=== PATIENT | female | born 1960 | race Caucasian/White ===

== ENCOUNTER → 2018-02-18 14:36 | Outpatient (POV) | payer BC, SELFPAY | PROVIDERS: Family Provider Family Medicine; Visit Provider Nurse Practitioner Acute Care | DX: Z00.00 Encounter for general adult medical examination without abnormal findings (principal) ==

== ENCOUNTER → 2018-02-22 08:12 | Outpatient (CLI) | payer BC, SELFPAY ==
--- NOTE | 2018-02-22 08:30 | US_ITS ---
US abdomen limited History:Right-sided abdominal pain, back pain, Ordering Physician:Urmila Wilcox Patient Age: 57 years Comparison:None Findings: Pancreas:Unremarkable. No obvious mass or abnormal fluid collection. No ductal dilatation Liver:No focal liver lesions demonstrated. Homogeneous echogenicity. No intrahepatic biliary ductal dilatation evident Right Kidney:Unremarkable. Normal size and echogenicity. No hydronephrosis Gallbladder:No gallstones, gallbladder wall thickening, pericholecystic fluid, or biliary dilatation. Impression:Negative gallbladder/right upper quadrant ultrasound
== END ==
PROVIDERS: Family Provider Family Medicine; PCP Family Medicine; Visit Provider Nurse Practitioner Acute Care
DX: R10.11 Right upper quadrant pain (principal)
CPT/HCPCS: 76705

== ENCOUNTER → 2018-06-17 09:24 | Outpatient (CLI) | payer BC, SELFPAY ==
--- NOTE | 2018-06-17 09:30 | XR_ITS ---
XR DEXA axial skeleton HISTORY: ITS.REASON: POST MENOPAUSAL ORDERING PHYSICIAN: Dasia Rodriguez MD PATIENT AGE: 58 years COMPARISON: None FINDINGS: The BMD measured at the Right femoral neck is 0.869 g/cm squared with a T score of -1.2. This is considered Osteopenic according to the World Health Organization criteria. Fracture risk is Moderate. Treatment is advised. IMPRESSION: Osteopenia with moderate fracture risk. Suggest treatment and follow-up exam May 2020
--- NOTE | 2018-06-17 09:30 | XR_ITS ---
XR foot LT min 3V HISTORY: ITS.REASON: LEFT FOOT PAIN ORDERING PHYSICIAN: Dasia Rodriguez MD PATIENT AGE: 58 years COMPARISON: None FINDINGS: No fracture or dislocation. No lytic or blastic change. There is normal mineralization.. The joint spaces are well-preserved. No significant degenerative/arthritic changes. No erosive changes evident. IMPRESSION: Negative, no acute finding
== END ==
PROVIDERS: Family Provider Family Medicine; PCP Family Medicine; Visit Provider Family Medicine
DX: Z78.0 Asymptomatic menopausal state (principal); M79.672 Pain in left foot
CPT/HCPCS: 73630; 77080

== ENCOUNTER → 2019-06-17 07:57 | Outpatient (POV) | payer BC, SELFPAY | PROVIDERS: Visit Provider Dermatology | DX: Z00.00 Encounter for general adult medical examination without abnormal findings (principal) ==

== ENCOUNTER → 2019-08-13 13:30 | Outpatient (CLI) | payer BC, SELFPAY ==
--- NOTE | 2019-08-13 13:40 | CT_ITS ---
PROCEDURE: CT SINUS WO CON CLINICAL HISTORY: RECURRENT SINUSITIS Sinus drainage, chronic sinusitis COMPARISON: SINUS CT SINUS (MAX-FACIAL W/O CONT) from 08/02/2015 TECHNIQUE: Axial images obtained with sagittal and coronal reformats. All CT scans at the facility use one or more dose reduction, viz: automated exposure control, ma/kV adjustment per patient size (including targeted exams where dose is matched to indication, i.e. head), or iterative reconstruction technique. FINDINGS: No sinus air-fluid level or mastoid effusion apparent. No significant nasal septal deviation. No significant mucosal thickening. The roots of the maxillary teeth do not extend into the sinus cavity. TMJs have an unremarkable appearance. The orbits are unremarkable. The artifact is present from patient's dental work. Scattered calcifications are present within the crypts of the tonsils. IMPRESSION: Negative CT paranasal sinuses. Dictated by: Corey Valdes MD 08/13/2019 17:06 Electronically signed by Corey Valdes MD in [place] 08/13/2019 17:07
== END ==
PROVIDERS: PCP Family Medicine; Visit Provider Physician Assistant
DX: J01.01 Acute recurrent maxillary sinusitis (principal)
CPT/HCPCS: 70486

== ENCOUNTER → 2019-08-22 15:39 | Outpatient (CLI) | payer BC, SELFPAY ==
--- NOTE | 2019-08-22 15:42 | XR_ITS ---
PROCEDURE: XR CHEST 2V CLINICAL HISTORY: BRONCHITIS COMPARISON: [facility] CT CHEST W/O CONTRAST from 05/28/2015 CXR CHEST(2 VIEWS-NOT PORTABLE) from 11/03/2015 CXR1 CHEST-PORTABLE from 11/28/2015 CXR CHEST(2 VIEWS-NOT PORTABLE) from 01/26/2017 FINDINGS: The cardiomediastinal silhouette and pulmonary vascularity are within normal limits. The lungs are clear without infiltrates, suspicious nodules, or pleural effusions. No acute bony abnormalities. IMPRESSION: No acute findings. Dictated by: Jeronimo Seals 08/22/2019 15:59 Electronically signed by Jeronimo Seals in [place] 08/22/2019 15:59
== END ==
PROVIDERS: PCP Physician Assistant; Visit Provider Physician Assistant
DX: J45.909 Unspecified asthma, uncomplicated (principal)
CPT/HCPCS: 71046

== ENCOUNTER → 2019-09-18 10:16 | Outpatient (CLI) | payer BC, SELFPAY ==
--- NOTE | 2019-09-18 10:21 | XR_ITS ---
PROCEDURE: XR CHEST 2V CLINICAL HISTORY: BRONCHITIS COMPARISON: WO CT CHEST W/O CONTRAST from 05/28/2015 CXR1 CHEST-PORTABLE from 11/28/2015 CXR CHEST(2 VIEWS-NOT PORTABLE) from 01/26/2017 XR CHEST 2V from 08/22/2019 FINDINGS: The cardiomediastinal silhouette and pulmonary vascularity are within normal limits. The lungs are clear without infiltrates, suspicious nodules, or pleural effusions. No acute bony abnormalities. IMPRESSION: No acute findings. Dictated by: Clifton Murray 09/18/2019 11:11 Electronically signed by Clifton Murray in [place] 09/18/2019 11:11
== END ==
PROVIDERS: PCP Physician Assistant; Visit Provider Physician Assistant
DX: J40 Bronchitis, not specified as acute or chronic (principal)
CPT/HCPCS: 71046

== ENCOUNTER → 2019-09-23 14:24 | Outpatient (CLI) | payer BC, SELFPAY ==
[2019-09-23 15:24] LABS: Basophils % 0.3 % (0.1-2.0); Eosinophils # 0.1 K/mm3 (0.0-0.4); Eosinophils % 1.8 % (0.1-12.0); Hematocrit 41.1 % (37.0-47.0); Hemoglobin 13.1 g/dL (12.2-16.2); Lymphocytes # 2.1 K/mm3 (0.7-4.5); Lymphocytes % 30.7 % (10-50); Mean Corpuscular HGB Conc 31.7 g/dL (31.8-35.4); Mean Corpuscular Hemoglobin 29.6 pg (27.0-31.2); Mean Corpuscular Volume 93.3 fl (81-99); Mean Platelet Volume 8.3 fl (7.4-10.4); Monocytes # 0.4 K/mm3 (0.1-1.0); Monocytes % 5.6 % (1.7-9.3); Neutrophils # 4.3 K/mm3 (1.8-7.8); Neutrophils % 61.7 % (37.0-80.0); Platelet Count 305 K/mm3 (142-424); Red Blood Count 4.41 M/mm3 (4.20-5.40); Red Cell Distribution Width 13.5 % (11.5-17.5); White Blood Count 6.9 K/mm3 (4.8-10.8)
[2019-09-23 16:29] LABS: Alanine Aminotransferase 65 U/L (12-78); Alkaline Phosphatase 71 U/L (46-116); Anion Gap 13.9 mEq/L (5-15); Aspartate Amino Transferase 33 U/L (15-37); Bilirubin,Direct 0.1 mg/dL (0.0-0.2); Bilirubin,Indirect 0.1 mg/dL (0.0-0.9); Bilirubin,Total 0.2 mg/dL (0.2-1.0); Blood Urea Nitrogen 14 mg/dL (7-18); Calcium 9.3 mg/dL (8.5-10.1); Carbon Dioxide 30 mmol/L (21.0-32.0); Chloride 105 mmol/L (98-107); Chol/HDL Ratio 2.3 (1-3.5); Cholesterol 204 mg/dL (140-200); Creatinine,Serum 0.99 mg/dL (0.55-1.02); Estimated Glomerular Filt Rate 58 ml/min (>60); Free T4 (Free Thyroxine) 0.87 ng/dl (0.76-1.46); GFR (African American) 70 ML/MIN (>60); Glucose 79 mg/dL (74-106); HDL Cholesterol 90 mg/dL (29-89); LDL Cholesterol 92 mg/dL (0-130); Potassium 3.9 mmoL/L (3.5-5.1); Sodium 145 mmol/L (136-145); Thyroid Stimulating Hormone 2.72 uIU/ml (0.358-3.740); Total Protein,Serum 7.1 gm/dL (6.4-8.2); Triglycerides 109 mg/dL (30-200); VLDL Cholesterol 22 mg/dL (0-40)
[2019-09-25 17:01] LABS: Triiodothyronine (T3) Free 3.3 pg/mL (2.0-4.4)
== END ==
PROVIDERS: Visit Provider Physician Assistant
DX: R07.9 Chest pain, unspecified (principal); R06.00 Dyspnea, unspecified; R53.83 Other fatigue; I10 Essential (primary) hypertension; R61 Generalized hyperhidrosis
CPT/HCPCS: 36415; 80048; 80061; 80076; 84439; 84443; 84481; 85025

== ENCOUNTER → 2019-09-24 14:17 | Outpatient (CLI) | payer BC, SELFPAY ==
--- NOTE | 2019-09-24 14:18 | CA_ITS ---
APPROVED REPORT EXAM: Comprehensive 2D, Doppler, and color-flow Echocardiogram Preparer Making Department: Tiff Magana RT(R) Ht: 5 ft 5 in Wt: 198lbs BSA: 1.97 BP: 138/65 mmHg Indications: CP, Fatigue, Edema, HTN, SOB, GERD, asthma 2D Dimensions LVOT 1.81 cm (M/F) 1.5-2.5 M-Mode Dimensions RVDd 1.65 cm (0.9-2.6) LVDd 5.17 cm (3.5-5.7) LVDs 3.52 cm (3.5-5.7) IVSd 0.72 cm (0.6-1.1) PWd 0.93 cm (0.6-1.1) EF (Teich) 59.60% FS 31.90% EDV (Teich) 127.80 mL ESV (Teich) 51.60 mL LV Diastology E/A Ratio 0.84 Mitral Valve MV A Velocity 81.00 (40-130 cm/s) Left Ventricle Left atrium is mildly enlarged, left ventricle is normal size, mild concentric left ventricular hypertrophy, visually estimated ejection fraction 55% with no regional wall motion abnormality. Grade 1 diastolic dysfunction seen without tissue Doppler evidence of raise left atrial pressure. Right Ventricle Right atrium and right ventricular normal size and contractility. Aortic Valve Aortic valve is minimally thickened and calcified, there is no aortic stenosis or aortic insufficiency. Mitral Valve Mitral valve leaflets are minimally thickened, there is no mitral stenosis, there is mild mitral regurgitation. Tricuspid Valve Tricuspid valve is grossly normal. There is mild tricuspid regurgitation. Tricuspid radiation jet velocity Pulmonic Valve Pulmonic valve is poorly visualized. Great Vessels Aortic root is normal size. Pericardium No significant pericardial effusion noted. Conclusion 1. Mildly enlarged left atrium, normal left ventricular size, mild concentric left ventricular hypertrophy, visually estimated ejection fraction 55% with no regional wall motion abnormality, grade 1 diastolic dysfunction seen without tissue Doppler evidence of raise left atrial pressure. 2. Mild mitral and tricuspid regurgitation. 3. No significant pericardial effusion noted. Electronically signed by : Balbir Curran, 09/25/2019 15:31:07
== END ==
PROVIDERS: PCP Physician Assistant; Visit Provider Physician Assistant
DX: R07.9 Chest pain, unspecified (principal); R06.02 Shortness of breath; I10 Essential (primary) hypertension; R53.83 Other fatigue; R61 Generalized hyperhidrosis
CPT/HCPCS: 93306

== ENCOUNTER → 2019-09-25 13:54 | Outpatient (CLI) | payer BC, SELFPAY ==
[2019-09-25 17:28] LABS: Erythrocyte Sedimentation Rate 22 mm/hr (0-30)
== END ==
PROVIDERS: Visit Provider Internal Medicine Cardiovascular Disease
DX: R07.9 Chest pain, unspecified (principal); R06.00 Dyspnea, unspecified; I10 Essential (primary) hypertension; R53.83 Other fatigue; R61 Generalized hyperhidrosis
CPT/HCPCS: 36415; 85651; 87040

== ENCOUNTER → 2019-10-02 14:06 | Outpatient (CLI) | payer BC, SELFPAY ==
--- NOTE | 2019-10-02 14:07 | CT_ITS ---
PROCEDURE: CT CHEST WO CON CLINICAL INDICATION: dyspnea fatigue Cough, abnormal breath sounds, chronic cough unrelieved by antibiotics and steroids COMPARISON: [facility] CT CHEST W/O CONTRAST from 05/28/2015 ABDPELW/O CT ABD PELVIS W/O CONTRAST from 11/02/2016 TECHNIQUE: Axial images obtained with sagittal and coronal reformats. All CT scans at the facility use one or more dose reduction, viz: automated exposure control, ma/kV adjustment per patient size (including targeted exams where dose is matched to indication, i.e. head), or iterative reconstruction technique. FINDINGS: There are coronary artery calcifications. There is minimal thickening of the pericardium anteriorly. Normal heart size. There is mild biapical fibrotic change. There is a 4 mm noncalcified nodule in the right upper lobe centrally. This is nonspecific too small to categorize. Series 3, image 30. Calcified granuloma is present in the right lower lobe. There is a stable 5 mm nodule in the right CP angle which is noncalcified. There is a stable 4 mm nodule in the left upper lobe the. Mild atelectatic changes are present in the left lung base posteriorly. No effusions or infiltrates. No central obstructing lesions. No mediastinal or hilar mass or adenopathy. Degenerative changes thoracic spine. Upper abdominal images show a complex cystic lesion of the spleen anteriorly measuring 1.9 cm with some minimal peripheral calcification anteriorly. IMPRESSION: 1. No acute finding. 2. There are scattered small pulmonary nodules present most of which are stable. One nodule measuring 4 mm is present in the right upper lobe and may have been present but not readily apparent compared to the previous study. 3. Coronary artery calcification. 4. Partially calcified splenic cyst Dictated by: Corey Valdes MD 10/03/2019 09:15 Electronically signed by Corey Valdes MD in [place] 10/03/2019 09:15
== END ==
PROVIDERS: PCP Physician Assistant; Visit Provider Internal Medicine Cardiovascular Disease
DX: R06.00 Dyspnea, unspecified (principal); R07.9 Chest pain, unspecified; R53.83 Other fatigue; I10 Essential (primary) hypertension; R61 Generalized hyperhidrosis
CPT/HCPCS: 71250

== ENCOUNTER → 2019-10-29 11:07 | Outpatient (CLI) | payer BC, SELFPAY ==
--- NOTE | 2019-10-29 11:11 | CA_ITS ---
APPROVED REPORT Exam: Exercise Treadmill Technologist: Yahaira Lehman Ht: 5 ft 6 in Wt: 200 lbs BSA: 2.00 m2 HR: 61 bpm BP: 125/74 mmHg Indications: Shortness of Breath Medical History Medications: Omeprazole,,,,, Aspirin,,,,, Vitamin E,,,,, HCTZ,,,,, MeLOXICAM,,,,, Famotidine,,,,, DulOXETINE,,,,, BisOPROLOL,,,,, Levocetirizine,,,,, SpirOnolactone,,,,, Stress Test Details Test: Jorge A HR Resting HR: 60 bpm Max Heart Rate (APMHR): 163 bpm Max HR Achieved: 124 bpm Target HR (85% APMHR): 138 bpm % of APMHR: 76 Recovery HR: 74 bpm BP Resting BP: 125.0/74.0 mmHg Max BP: 186.0/62.0 mmHg Recovery BP: 144.0/71.0 mmHg ECG Clinical Exercise duration: 09:00 min Highest Stage Achieved: Exercise capacity: 10.1 METs Stress ECG Conclusion Resting ECG: Normal sinus rhythm Patient exercised 9:00 on Jorge A Protocol. Test stopped due to shortness of air, fatigue. Symptoms: Shortness of air, leg fatigue. No chest pain. Arrhythmias/Ectopy: Occasional PAC, [address]-T Changes: 1-1.[address] depression inferiorly and laterally. Conclusion: EKG changes positive for ischemia. Blunted heart rate response, on beta april. GXT only (no imaging). Test Summary Stage 3 03:00 14.0 3.4 124 . . . . REST 09:24 0.0 0.0 60 . 125/ 74 . . Stage 1 01:00 10.0 1.7 80 . . . . Stage 1 02:00 10.0 1.7 90 . . . . Stage 1 03:00 10.0 1.7 94 . 130/ 58 . . Stage 2 01:00 12.0 2.5 98 . . . . Stage 2 02:00 12.0 2.5 103 . . . . Stage 2 03:00 12.0 2.5 106 . 144/ 60 . . Stage 3 01:00 14.0 3.4 115 . . . . Stage 3 02:00 14.0 3.4 119 . . . . Stage 3 03:00 14.0 3.4 124 . . . Stop exercise at 09:00 RECOVERY 01:00 0.0 0.0 96 . . . . RECOVERY 02:00 0.0 0.0 83 . 186/ 62 . . RECOVERY 03:00 0.0 0.0 77 . 186/ 62 . . RECOVERY 04:00 0.0 0.0 78 . 154/ 63 . . RECOVERY 05:00 0.0 0.0 74 . 144/ 71 . . RECOVERY 05:25 0.0 0.0 76 . 144/ 71 . . Electronically signed by : Miugel Altamirano, 10/30/2019 09:13:57
== END ==
PROVIDERS: PCP Physician Assistant; Visit Provider Physician Assistant
DX: R07.9 Chest pain, unspecified (principal); R06.02 Shortness of breath; R00.2 Palpitations
CPT/HCPCS: 93017

== ENCOUNTER → 2019-11-13 06:43 | Outpatient (CLI) | payer BC, SELFPAY ==
--- NOTE | 2019-11-13 | CA_ITS ---
APPROVED REPORT Exam: Exercise Treadmill Technologist: Patricia Reeves, Ht: 5 ft 6 in Wt: 195 lbs BSA: 1.98 m2 HR: 67 bpm BP: 131/77 mmHg Rhythm: NSR,NORMAL Medical History Medical History: HTN Medications: Omeprazole,,,,, Asa,,,,, HCTZ,,,,, Albuterol,,,,, MeLOXICAM,,,,, BisOPROLOL,,,,, Singulair,,,,, Cardiac Risk Factors: HTN, FHX of CAD Stress Test Details Test: Jorge A HR Resting HR: 69 bpm Max Heart Rate (APMHR): 163 bpm Max HR Achieved: 123 bpm Target HR (85% APMHR): 138 bpm % of APMHR: 75 Recovery HR: 99 bpm BP Resting BP: 131.0/71.0 mmHg Max BP: 160.0/64.0 mmHg Recovery BP: 160.0/64.0 mmHg ECG Resting ECG: NORMAL SINUS RHYTHM,NORMAL Clinical Exercise duration: 08:30 min Highest Stage Achieved: Exercise capacity: 10.1 METs Stress ECG Conclusion EXERCISED 8:30 ON JORGE A PROTOCOL WITH MAX HEART RATE 123 BPM WHICH IS 75% OF PM FOR AGE. MAX BP 160/64. MEYS = 10.1. TEST STOPPED DUE TO SOA AND FATIGUE. NO CHEST PAIN. RARE PAC. APPROX. 1MM HORIZONTAL ST DEPRESSION INFERIORLY AND 0.5 MM LATERALLY. BORDERLINE POSITIVE EKG CHANGES FOR ISCHEMIA. BLUNTED HEART RATE RESPONSE ON BETA MARY. MYOVIEW IMAGES REPORTED SEPARATELY. Test Summary REST . . . . . . . Standing REST . . . . . . . Sitting REST 04:18 0.0 0.0 69 . 131/ 71 . . Stage 1 01:00 10.0 1.7 82 . . . . Stage 1 02:00 10.0 1.7 91 . . . . Stage 1 03:00 10.0 1.7 92 . 128/ 60 . . Stage 2 01:00 12.0 2.5 98 . . . . Stage 2 02:00 12.0 2.5 102 . . . . Stage 2 03:00 12.0 2.5 107 . 148/ 60 . . Stage 3 . . . . . . . Cardiolite injected Stage 3 01:00 14.0 3.4 111 . . . . Stage 3 02:00 14.0 3.4 122 . . . . Stage 3 02:30 14.0 3.4 123 . . . Stop exercise at 08:30 RECOVERY 01:00 0.0 0.0 99 . 160/ 64 . . RECOVERY 02:00 0.0 0.0 79 . 160/ 64 . . RECOVERY 03:00 0.0 0.0 73 . 144/ 69 . . RECOVERY 04:00 0.0 0.0 73 . 137/ 75 . . RECOVERY 05:00 0.0 0.0 70 . 137/ 75 . . RECOVERY 05:20 0.0 0.0 70 . 137/ 62 . . Electronically signed by : Miguel Altamirano, 11/17/2019 13:48:54
--- NOTE | 2019-11-13 07:04 | NM_ITS ---
APPROVED REPORT Exam: Nuclear Stress Test Indication: chest pain..short of breath..palpitation..fatigue Patient Location: Outpatient Stress Tech: Rita Reeves [place] Tech:Sweta HolmREJI RT(R)(N) Ht: 5 ft 6 in Wt: 195 lbs Bra Size: 38 D HR: 67 bpm BP: 131/71 mmHg BSA: 1.98 m2 BMI: 31.4 Procedure: Patient exercised on Jorge A protocol 8.30 minutes and sec, resting heart rate 67 bpm, resting blood pressure 131/71 mmHg, with exercise maximum heart rate achived was 123 bpm which is % of the maximum predicted heart rate and blood pressure was 160/64 mmHg. Patient denied any complaint of chest pain. Patient has GOOD exercise capacity, achieved 10.1 METs of workload on treadmill, the blood pressure response to exercise was adequate. Cardiac Stress and Resting SPECT Images: EF 67 % Small defect in fixed apex . No reversible defects Conclusion: EF 67 % Small fixed defect in the apex suggesting small focus of infarction . No reversible defects Electronically signed by : Corey Valdes MD 11/13/2019 15:03:28
--- NOTE | 2019-11-13 12:24 | HMH.ITSHM ---
Current Home Medications as stated by this patient Zac Hernandez or b2b sales representative. [] hctz albuterol pro air bisoprolol asa meloxican omeprazole singulair
== END ==
PROVIDERS: PCP Physician Assistant; Visit Provider Urology
DX: R07.9 Chest pain, unspecified (principal); R06.00 Dyspnea, unspecified; I25.10 Atherosclerotic heart disease of native coronary artery without angina pectoris; R94.39 Abnormal result of other cardiovascular function study; I10 Essential (primary) hypertension
CPT/HCPCS: 78452; 93017; A9502

== ENCOUNTER 2019-12-01 08:29 | Day surgery (SDC) | payer BC, SELFPAY ==
[2019-12-01] VITALS (11 sets, daily range): BP systolic 100–135; BP diastolic 54–82; PULSE 51–71; RESP 16–18; TEMP 36.8; O2SAT 93–99; BMI 33.6
--- NOTE | 2019-12-01 | IR_ITS ---
APPROVED REPORT Patient Location: Outpatient PROCEDURES Left heart catheterization Left ventriculogram Selective coronary angiogram INDICATION Abnormal Myoview, Angina pectoris Informed consent was obtained prior to the procedure. COMPLICATIONS none Estimated Blood Loss: less than 10 mls TECHNIQUE One percent lidocaine used to anesthetize the right anterior aspect of the wrist. The right radial artery was accessed via the Seldinger technique. A 6 Malian sheath was placed in the right radial artery. 2.5 mg of verapamil, 800 mcg of nitroglycerin, 1mg Lidocaine and 5000 U Heparin were given through the arterial sheath. The trap catheter and 6 Malian JL 3 guide catheter were used to perform left heart catheterization, left ventriculogram and selective coronary angiogram. At the end of the procedure the sheath was removed good hemostasis was achieved using Traclet band, patient was transferred to the postop holding area in stable condition. ANGIOGRAPHIC RESULTS The left main artery Normal The left anterior descending artery Normal The circumflex artery Normal The right coronary artery Dominant normal The PROCTOR ventriculogram reveals Normal 65% The left ventricular end-diastolic pressure 15 mmHg IMPRESSION Normal coronary arteries Normal ejection fraction Borderline elevated LVEDP PLAN 1. Medical management Electronically signed by : Miguel Altamirano, 12/01/2019 11:18:10
[2019-12-01 09:14] LABS: Basophils % 0.5 % (0.1-2.0); Eosinophils # 0.1 K/mm3 (0.0-0.4); Eosinophils % 1.6 % (0.1-12.0); Hematocrit 40.4 % (37.0-47.0); Hemoglobin 13.3 g/dL (12.2-16.2); Lymphocytes # 1.9 K/mm3 (0.7-4.5); Lymphocytes % 36.7 % (10-50); Mean Corpuscular HGB Conc 32.9 g/dL (31.8-35.4); Mean Corpuscular Hemoglobin 28.9 pg (27.0-31.2); Mean Corpuscular Volume 87.9 fl (81-99); Mean Platelet Volume 8.8 fl (7.4-10.4); Monocytes # 0.4 K/mm3 (0.1-1.0); Monocytes % 6.9 % (1.7-9.3); Neutrophils # 2.8 K/mm3 (1.8-7.8); Neutrophils % 54.4 % (37.0-80.0); Platelet Count 251 K/mm3 (142-424); Red Cell Distribution Width 12.7 % (11.5-17.5); White Blood Count 5.1 K/mm3 (4.8-10.8)
[2019-12-01 09:17] LABS: Chloride 101 mmol/L (98-107); Sodium 138 mmol/L (136-145)
[2019-12-01 09:18] LABS: Potassium 4.1 mmoL/L (3.5-5.1)
[2019-12-01 09:21] LABS: Anion Gap 8.1 mEq/L (5-15); Blood Urea Nitrogen 15 mg/dl (7-17); Calcium 9.9 mg/dl (8.4-10.2); Carbon Dioxide 33 mmol/L (22.0-30.0); Creatinine Clearance Estimated 112 mL/min (50-200); Estimated Glomerular Filt Rate 74 ml/min (>60); GFR (African American) 89 ML/MIN (>60); Glucose 109 mg/dl (74-100)
== END 2019-12-01 14:06 | disposition home or self-care (01) ==
LOC: CATHLAB 08:32
PROVIDERS: PCP Physician Assistant; Visit Provider Internal Medicine
DX: R94.39 Abnormal result of other cardiovascular function study (principal); I25.118 Atherosclerotic heart disease of native coronary artery with other forms of angina pectoris; I10 Essential (primary) hypertension; Z88.8 Allergy status to other drugs, medicaments and biological substances; Z79.82 Long term (current) use of aspirin; Z79.899 Other long term (current) drug therapy
CPT/HCPCS: 80048; 85025; 93458; 99152; C1725; C1769; J1644; Q9967

== ENCOUNTER → 2020-03-22 16:40 | Outpatient (CLI) | payer BC, SELFPAY ==
--- NOTE | 2020-03-22 16:44 | XR_ITS ---
PROCEDURE: XR HAND LT MIN 3V CLINICAL INDICATION: Left hand pain. COMPARISON: HANDL3 HAND-LT-3 VIEWS from 07/13/2017 HANDR3 HAND-RT 3 VIEWS from 07/13/2017 FINDINGS: Normal-appearing visualized distal left radius and ulna. Normal distal radioulnar and radiocarpal articulations. The carpal bones maintain normal anatomic alignment. Again noted is small cystic area laterally of the lunate. There is mild/moderate osteoarthrosis of the carpometacarpal, metacarpophalangeal and interphalangeal articulations of the thumb. The metacarpals and phalanges appear intact. No acute bony abnormality is identified The soft tissue structures are unremarkable. IMPRESSION: 1. No acute findings. 2. Again noted a tiny cystic area laterally of the lunate. 3. Mild/moderate arthrosis of the carpometacarpal, MCP and interphalangeal articulations of the thumb. Dictated by: Irene Ferrari 03/22/2020 17:15 Electronically signed by Irene Ferrari in [place] 03/22/2020 17:15
--- NOTE | 2020-03-22 16:44 | XR_ITS ---
PROCEDURE: XR HAND RT MIN 3V CLINICAL INDICATION: POLYARTHRALGIA COMPARISON: HANDL3 HAND-LT-3 VIEWS from 07/13/2017 HANDR3 HAND-RT 3 VIEWS from 07/13/2017 FINDINGS: No fracture or dislocation. No lytic or blastic change. There is normal mineralization. The joint spaces are well-preserved. Very mild or early degenerative arthritic changes are again seen of the carpometacarpal articulation of the thumb. Otherwise no significant degenerative/arthritic changes are evident. Other findings:None. IMPRESSION: 1. No acute findings. Dictated by: Irene Ferrari 03/22/2020 17:09 Electronically signed by Irene Ferrari in [place] 03/22/2020 17:09
== END ==
PROVIDERS: PCP Family Medicine; Visit Provider Family Medicine
DX: M25.50 Pain in unspecified joint (principal); M79.642 Pain in left hand; M79.641 Pain in right hand
CPT/HCPCS: 73130

== ENCOUNTER → 2020-05-07 14:37 | Outpatient (CLI) | payer BC, SELFPAY ==
[2020-05-07 16:04] LABS: Basophils % 0.3 % (0.1-2.0); Eosinophils # 0.1 K/mm3 (0.0-0.4); Eosinophils % 1.5 % (0.1-12.0); Hematocrit 39.1 % (37.0-47.0); Hemoglobin 13.4 g/dL (12.2-16.2); Lymphocytes # 2.5 K/mm3 (0.7-4.5); Lymphocytes % 29.9 % (10-50); Mean Corpuscular HGB Conc 34.2 g/dL (31.8-35.4); Mean Corpuscular Volume 87.8 fl (81-99); Mean Platelet Volume 8.8 fl (7.4-10.4); Monocytes # 0.5 K/mm3 (0.1-1.0); Monocytes % 5.5 % (1.7-9.3); Neutrophils # 5.2 K/mm3 (1.8-7.8); Neutrophils % 62.7 % (37.0-80.0); Platelet Count 273 K/mm3 (142-424); Red Blood Count 4.45 M/mm3 (4.20-5.40); Red Cell Distribution Width 13.1 % (11.5-17.5); White Blood Count 8.3 K/mm3 (4.8-10.8)
[2020-05-09 08:41] LABS: Covid-19 Nasal PCR Sendout UK Not Detected
== END ==
PROVIDERS: PCP Physician Assistant; Visit Provider Physician Assistant
DX: Z03.818 Encounter for observation for suspected exposure to other biological agents ruled out (principal)
CPT/HCPCS: 36415; 85025; U0003

== ENCOUNTER → 2020-09-08 15:15 | Outpatient (CLI) | payer BC, SELFPAY ==
--- NOTE | 2020-09-08 15:19 | US_ITS ---
PROCEDURE: US THYROID CLINICAL INDICATION: ENLARGED THYROID COMPARISON: No exams were available for comparison FINDINGS: Right lobe: 1.3cm x 4.1cm x 1.3cm Left lobe: 0.8cm x 3.5cm x 1.1cm Isthmus: Unremarkable Additional findings: Homogeneous echogenicity of the thyroid gland on both sides. No discrete nodule IMPRESSION: Unremarkable thyroid ultrasound Dictated by: Corey Valdes MD 09/09/2020 08:42 Corey Valdes MD in [place] 09/09/2020 08:42
== END ==
PROVIDERS: PCP Physician Assistant; Visit Provider Physician Assistant
DX: E04.9 Nontoxic goiter, unspecified (principal)
CPT/HCPCS: 76536

== ENCOUNTER → 2021-04-12 09:59 | Outpatient (POV) | payer BC, SELFPAY | PROVIDERS: Visit Provider Dermatology | DX: Z00.00 Encounter for general adult medical examination without abnormal findings (principal) ==

== ENCOUNTER → 2021-06-22 10:13 | Outpatient (CLI) | payer BC, SELFPAY ==
[2021-06-22 12:41] LABS: Alanine Aminotransferase 26 U/L (12-78); Albumin Level 4.4 g/dl (3.5-5.0); Albumin/Globulin Ratio 1.6 (1.1-1.8); Alkaline Phosphatase 58 U/L (38-126); Anion Gap 15.7 mEq/L (5-15); Aspartate Amino Transferase 38 U/L (14-36); Bilirubin,Total 0.5 mg/dl (0.2-1.3); Blood Urea Nitrogen 15 mg/dl (7-17); Calcium 9.6 mg/dl (8.4-10.2); Carbon Dioxide 24 mmol/L (22.0-30.0); Chloride 104 mmol/L (98-107); Estimated Glomerular Filt Rate 86 ml/min (>60); GFR (African American) 104 ML/MIN (>60); Globulin 2.8 g/dL (1.3-3.2); Glucose 104 mg/dl (74-100); Potassium 4.7 mmoL/L (3.5-5.1); Sodium 139 mmol/L (136-145); Total Protein,Serum 7.2 g/dl (6.3-8.2)
[2021-06-22 13:23] LABS: Basophils # 0.1 K/mm3 (0-0.2); Basophils % 0.9 % (0.1-2.0); Eosinophils # 0.2 K/mm3 (0.0-0.4); Eosinophils % 2.6 % (0.1-12.0); Hematocrit 40.8 % (37.0-47.0); Hemoglobin 11.7 g/dL (12.2-16.2); Lymphocytes # 2.4 K/mm3 (0.7-4.5); Lymphocytes % 33.9 % (10-50); Mean Corpuscular HGB Conc 28.6 g/dL (31.8-35.4); Mean Corpuscular Hemoglobin 25.7 pg (27.0-31.2); Mean Corpuscular Volume 89.9 fl (81-99); Mean Platelet Volume 10.2 fl (7.4-10.4); Monocytes # 0.5 K/mm3 (0.1-1.0); Monocytes % 6.9 % (1.7-9.3); Neutrophils % 55.7 % (37.0-80.0); Platelet Count 313 K/mm3 (142-424); Red Blood Count 4.54 M/mm3 (4.20-5.40); White Blood Count 7.1 K/mm3 (4.8-10.8)
== END ==
PROVIDERS: Visit Provider Specialist
DX: I10 Essential (primary) hypertension (principal); G50.0 Trigeminal neuralgia
CPT/HCPCS: 36415; 80053; 85025

== ENCOUNTER → 2021-06-28 09:09 | Outpatient (CLI) | payer BC, SELFPAY ==
--- NOTE | 2021-06-28 09:09 | MR_ITS ---
PROCEDURE: MR HEAD/BRAIN WO/W CON CLINICAL INDICATION: Facial pain, trigeminal neuralgia COMPARISON: No exams were available for comparison TECHNIQUE: Routine multiplanar multi echo sequences are performed without and with gadolinium enhancement. FINDINGS: No midline shift, mass effect, intracranial hemorrhage, or hydrocephalus. The cerebellopontine angles, cerebellum, and brainstem have an unremarkable appearance. There are few scattered T2 white matter hyperintensities which are nonspecific. These do not demonstrate contrast enhancement or restricted diffusion. A small linear area of enhancement is present in the right frontal lobe extending to the cortical surface suggesting a small developmental venous anomaly. The pituitary, optic chiasm, corpus callosum, and craniocervical junction have an unremarkable appearance. No mastoid effusion or sinus air-fluid level. IMPRESSION: No acute intracranial findings. Scattered small T2 white matter hyperintensities. These are nonspecific most commonly associated with ischemic gliotic foci from microvascular changes. Differential diagnosis would include changes seen with migraine headache or demyelinating process. Suspect small developmental venous anomaly in the right frontal lobe Dictated by: Corey Valdes MD 06/29/2021 10:28 Corey Valdes MD in [place] 06/29/2021 10:28
== END ==
PROVIDERS: PCP Physician Assistant; Visit Provider Specialist
DX: R51.9 Headache, unspecified (principal); G50.0 Trigeminal neuralgia; I10 Essential (primary) hypertension
CPT/HCPCS: 70553; A9576

== ENCOUNTER → 2021-07-18 14:16 | Outpatient (CLI) | payer BC, SELFPAY ==
[2021-07-18 16:23] LABS: Adenovirus,PCR Not Detected (NotDetected); Bordetella Pertussis Not Detected (NotDetected); Chlamydophila Pneumoniae, PCR Not Detected (NotDetected); Coronavirus 19, PCR Not Detected (NotDetected); Coronavirus 229E Not Detected (NotDetected); Coronavirus NL63 Not Detected (NotDetected); Coronavirus OC43 Not Detected (NotDetected); Coronovirus HKU1,PCR Not Detected (NotDetected); Human Metapneumovirus Not Detected (NotDetected); Influenza A, PCR Not Detected (NotDetected); Influenza AH1, 2009 Not Detected (NotDetected); Influenza AH1, PCR Not Detected (NotDetected); Influenza AH3,PCR Not Detected (NotDetected); Influenza B, PCR Not Detected (NotDetected); Mycoplasma Pneumoniae, PCR Not Detected (NotDetected); Parainfluenza 1, PCR Not Detected (NotDetected); Parainfluenza 2, PCR Not Detected (NotDetected); Parainfluenza 3, PCR Not Detected (NotDetected); Parainfluenza 4, PCR Not Detected (NotDetected); Respiratory Syncytial Virus Not Detected (NotDetected); Rhinovirus/Enterovirus Not Detected (NotDetected)
[2021-07-18 16:54] LABS: Basophils % 0.4 % (0.1-2.0); Eosinophils # 0.1 K/mm3 (0.0-0.4); Eosinophils % 1.7 % (0.1-12.0); Hematocrit 40.3 % (37.0-47.0); Hemoglobin 13.2 g/dL (12.2-16.2); Lymphocytes # 2.6 K/mm3 (0.7-4.5); Mean Corpuscular HGB Conc 32.6 g/dL (31.8-35.4); Mean Corpuscular Hemoglobin 29.2 pg (27.0-31.2); Mean Corpuscular Volume 89.4 fl (81-99); Mean Platelet Volume 9.8 fl (7.4-10.4); Monocytes # 0.5 K/mm3 (0.1-1.0); Monocytes % 6.1 % (1.7-9.3); Neutrophils # 4.5 K/mm3 (1.8-7.8); Neutrophils % 57.8 % (37.0-80.0); Platelet Count 298 K/mm3 (142-424); Red Blood Count 4.51 M/mm3 (4.20-5.40); Red Cell Distribution Width 13.8 % (11.5-17.5); White Blood Count 7.7 K/mm3 (4.8-10.8)
== END ==
PROVIDERS: PCP Family Medicine; Visit Provider Family Medicine
DX: Z20.822 Contact with and (suspected) exposure to COVID-19 (principal)
CPT/HCPCS: 36415; 85025; 87581; 87632; 87798; C9803; U0003; U0005

== ENCOUNTER 2021-08-27 13:22 | Emergency (ER) | payer BC, SELFPAY ==
[2021-08-27 14:43] VITALS: BP 143/62; PULSE 70; RESP 14; TEMP 36.6; O2SAT 99; BMI 32.3
--- NOTE | 2021-08-27 14:47 | HMH.EDUTC ---
[facility] [place] Clinical Impression: Asthma exacerbation Qualifiers: Asthma severity: unspecified severity Asthma persistence: unspecified Qualified Code(s): J45.901 - Unspecified asthma with (acute) exacerbation Sinusitis Qualifiers: Sinusitis location: unspecified location Chronicity: acute Recurrence: not specified as recurrent Qualified Code(s): J01.90 - Acute sinusitis, unspecified Disposition: Home, Self-Care Condition on Discharge: Good Instructions: DI for Sinusitis, DI for Asthma -- Adult Additional Instructions: Drink plenty of fluids. Take tylenol or ibuprofen for pain or fever. Take the medications as directed. Follow up with your regular doctor. GO TO THE ER FOR ANY WORSENING SYMPTOMS Don't start the oral steroids until tomorrow, since you had the shot here today. Prescriptions: Benzonatate [Benzonatate 100mg cap] 100 mg PO TIDP PRN #30 cap PRN Reason: Cough Transmission Status: Pending to [facility] methylPREDNISolone [Medrol] 4 mg PO DIRECTED 6 Days #21 packet Transmission Status: Pending to [facility] Cefdinir [Omnicef 300mg Capsule] 300 mg PO BID #20 cap Transmission Status: Pending to [facility] Referrals: Malina Leigh PA [Primary Care Provider] - Time of Disposition: 15:31 Medical Decision Making - Medical Records Medical records reviewed: No: I reviewed the patient's medical records. - Sajan Inquiry Pt receiving controlled substance: No Vital Signs: 08/27/21 14:43 Temperature 97.8 F Temperature Source Temporal Artery Scan Pulse Rate [Left] 70 Respiratory Rate 14 Blood Pressure [Right Arm] 143/62 H Blood Pressure Mean [Right Arm] 89 02 Sat by Pulse Oximetry 99 Orders (Tests/Meds): ED MEDICATIONS Discontinued Medications Generic Name Dose Route Start Last Admin Trade Name Freq PRN Reason Stop Dose Admin Ceftriaxone Sodium 1 gm 08/27/21 14:59 08/27/21 15:15 Ceftriaxone 1gm Vial IM 08/27/21 15:00 1 gm ONCE ONE Administration Lidocaine HCl 0 ml 08/27/21 14:59 08/27/21 15:15 Lidocaine 1% 5ml Pf Vial IM 08/27/21 15:00 2 ml ONCE ONE Administration Methylprednisolone Sodium Succinate 125 mg 08/27/21 14:59 08/27/21 15:15 Methylprednisolone Sod Succ 125mg Vial IM 08/27/21 15:00 125 mg ONCE ONE Administration [facility] [place] H[place] - General Stated complaint: sore throat, cough, h/a, congestion Time Seen by Provider: 08/27/21 14:47 Mode of Arrival: Ambulatory Source of Information: Patient Limitations: No Limitations Description of Symptoms (Recalled from Triage Doc. by RN): pt states she has L sided sinus congestion and yellow drainage. pt also c/o a sore throat. HEENT Symptoms (Recalled from RN notes): Yes Resp Symptoms (Recalled from RN notes): No Skin Symptoms (Recalled from RN notes): No MS Symptoms (Recalled from RN notes): No Functional Status (Recalled from RN notes): wnl - History of Present Illness Provider Complaint: She has a history of multiple environmental allergies and asthma. She tried a new perfume and it caused her to get very congested. When she woke up this morning she has been having chest congestion, sinus congestion, sinus pressure and wheezing. She denies any fever or chills. - Related Data Home Medications Medication Instructions Recorded Confirmed aspirin 81 mg tablet,delayed 81 mg PO DAILY 07/02/18 08/03/21 release montelukast 10 mg tablet 10 mg PO QPM 07/02/18 08/03/21 vitamin E 200 unit capsule 200 unit PO DAILY 07/02/18 08/03/21 omeprazole 40 mg capsule,delayed 40 mg PO DAILY cap 09/23/19 08/03/21 release duloxetine 30 mg capsule,delayed 30 mg PO DAILY cap 10/27/19 08/03/21 release meloxicam 15 mg tablet 15 mg PO DAILY tab 06/14/21 08/03/21 Previous Rx's Medication Instructions Recorded spironolactone 25 mg tablet 25 mg PO DAILY #90 tab 01/11/21 bisoprolol fumarate 5 mg tablet 5 mg PO DAILY #90 tab 06/22/21 Benzonatate [Benzonata
[2021-08-27 15:50] VITALS: BP 143/62; PULSE 70; RESP 14; TEMP 36.6
== END 2021-08-27 15:52 | disposition home or self-care (01) ==
PROVIDERS: Emergency Provider Nurse Practitioner Family; PCP Physician Assistant
DX: J01.90 Acute sinusitis, unspecified (principal); J45.901 Unspecified asthma with (acute) exacerbation; K21.9 Gastro-esophageal reflux disease without esophagitis; I10 Essential (primary) hypertension; Z79.899 Other long term (current) drug therapy
CPT/HCPCS: 99202; G0463; J0696

== ENCOUNTER → 2021-09-19 12:02 | Outpatient (CLI) | payer BC, SELFPAY ==
[2021-09-19 14:00] LABS: Basophils % 0.3 % (0.1-2.0); Eosinophils # 0.1 K/mm3 (0.0-0.4); Eosinophils % 0.8 % (0.1-12.0); Hematocrit 41.9 % (37.0-47.0); Hemoglobin 13.7 g/dL (12.2-16.2); Lymphocytes # 1.1 K/mm3 (0.7-4.5); Lymphocytes % 10.2 % (10-50); Mean Corpuscular HGB Conc 32.7 g/dL (31.8-35.4); Mean Corpuscular Hemoglobin 29.3 pg (27.0-31.2); Mean Corpuscular Volume 89.6 fl (81-99); Mean Platelet Volume 9.7 fl (7.4-10.4); Monocytes # 0.3 K/mm3 (0.1-1.0); Monocytes % 2.7 % (1.7-9.3); Neutrophils # 9.1 K/mm3 (1.8-7.8); Neutrophils % 85.9 % (37.0-80.0); Platelet Count 313 K/mm3 (142-424); Red Blood Count 4.67 M/mm3 (4.20-5.40); White Blood Count 10.6 K/mm3 (4.8-10.8)
[2021-09-19 14:01] LABS: MANUAL DIFFERENTIAL MANUAL DIFFERENTIAL (MANUAL DIFF)
[2021-09-19 14:41] LABS: Lymphocytes % 10 % (10-50); Monocytes % 2 % (2-9); Neutrophils % 88 % (42-76); Platelet Estimate Normal; RBC Morphology Normal; Total Cells Counted 100
== END ==
PROVIDERS: PCP Physician Assistant; Visit Provider Nurse Practitioner Family
DX: U07.1 COVID-19 (principal)
CPT/HCPCS: 36415; 85007; 85025; 87275; 87276; C9803; U0003; U0005

== ENCOUNTER 2022-06-10 09:51 | Emergency (ER) | payer BC, SELFPAY ==
[2022-06-10 10:00] VITALS: BP 138/67; PULSE 67; RESP 20; TEMP 36.8; O2SAT 96; BMI 35.6
--- NOTE | 2022-06-10 10:12 | EXP.UTC ---
Discharge Plan Disposition Patient Disposition: Home, Self-Care Condition: Good Prescriptions Prescriptions: New methylprednisolone [Medrol (Leonel)] 4 mg tablets,dose pack See Rx Instructions .Route .COMPLEX 6 Days Qty: 21 0RF Rx Instructions: taper pack; cefdinir 300 mg capsule 300 mg PO BID Qty: 20 0RF benzonatate 100 mg capsule 100 mg PO TID PRN (Reason: cough) Qty: 30 0RF No Action meloxicam 15 mg tablet 15 mg PO DAILY omeprazole 40 mg capsule,delayed release(DR/EC) 40 mg PO DAILY duloxetine 30 mg capsule,delayed release(DR/EC) 30 mg PO DAILY levocetirizine 5 mg tablet 5 mg PO DAILY Referrals Follow up/Referrals: Malina Leigh PA [Primary Care Provider] - See instructions Activity Restrictions/Add. Instructions Additional Instructions/Restrictions: Start antibiotic today. Be sure to complete entire prescription even if feeling better Monitor temp. Tylenol every 4 hours as needed and / or ibuprofen every 6 hours as needed ( As long as your primary care physician has told you that it ok to take both. For fever/aches/pains ER if no less than 101 despite Tylenol or Motrin Humidifier/vaporizer or hot steamy shower Inhaler every 4-6 hours as needed like we discussed. If unsure how to use it, ask pharmacist to demonstrate how. Should help open airways and improve cough, wheezing, and shortness of breath *Tessalon Perles will not cause drowsiness but use at bedtime to help stop cough so that you may get some rest. *Start steroid today. Helps with inflammation therefore, cough and wheezing. Follow directions on the package. Reviewed side effects. Patient reports taking them before. Topical Hydrocortisone may help with rash Follow up IMMEDIATELY for new or worsening of symptoms OR no noticeable improvement over the next 48-72 hours. 911 immediately for any life threatening symptoms such as chest pain or difficulty breathing Clinical Impressions Clinical Impression: Bronchitis Instructions Patient Instructions: DI for Sinusitis, Acute Bronchitis Discharge ED Provider: Kaitly[place]avidez [facility] [place] General Stated complaint: congestion, cough Mode of Arrival: Ambulatory Source of Information: Patient Limitations: No Limitations Time Seen by Provider: 06/10/22 10:12 Description of Symptoms (Recalled from Triage Doc. by RN): PATIENT C/O CONGESTION, COUGH, AND RASH (WRISTS AND CHEST) THAT STARTED THURSDAY. PATIENT REPORTS RECENT TRAVEL BY PLANE HEENT Symptoms (Recalled from RN notes): Yes Resp Symptoms (Recalled from RN notes): Yes Skin Symptoms (Recalled from RN notes): Yes MS Symptoms (Recalled from RN notes): No Functional Status (Recalled from RN notes): WNL History of Present Illness Provider Complaint: Patient states that she recently traveled to [place] via plane State that she has been having cough and congestion and feels like it is trying to move into her chest area States that also she has rash on her wrists and chest area that appears like she may have been bitten by something and wanted to have that looked at too Related Data Home Medications Medication Instructions Recorded Confirmed duloxetine 30 mg capsule,delayed 30 mg PO DAILY . 06/10/22 06/10/22 release levocetirizine 5 mg tablet 5 mg PO DAILY . 06/10/22 06/10/22 meloxicam 15 mg tablet 15 mg PO DAILY . 06/10/22 06/10/22 omeprazole 40 mg capsule,delayed 40 mg PO DAILY GERD 06/10/22 06/10/22 release Previous Rx's Medication Instructions Recorded benzonatate 100 mg capsule 100 mg PO TID PRN cough #30 caps 06/10/22 cefdinir 300 mg capsule 300 mg PO BID #20 caps 06/10/22 methylprednisolone 4 mg tablets in See Rx Instructions .Route 06/10/22 a dose pack (Medrol (Leonel)) .COMPLEX 6 days #21 tabs Allergies Allergy/AdvReac Type Severity Reaction Status Date / Time clarithromycin [From BIAXIN] Allergy Unknown Verified 04/19/22 11:27
[2022-06-10 10:20] VITALS: BP 138/67; PULSE 67; RESP 20; TEMP 36.8; O2SAT 96
== END 2022-06-10 10:23 | disposition home or self-care (01) ==
PROVIDERS: Emergency Provider Nurse Practitioner; PCP Physician Assistant
DX: J45.909 Unspecified asthma, uncomplicated (principal)
CPT/HCPCS: 99212; G0463

== ENCOUNTER → 2022-06-21 10:57 | Outpatient (CLI) | payer BC, SELFPAY ==
--- NOTE | 2022-06-21 11:02 | XR_ITS ---
FINAL REPORT CLINICAL HISTORY: NECK PAIN FINDINGS: AP and lateral Views were obtained. There is no acute fracture. There is no malalignment. The disc spaces are maintained. IMPRESSION: No acute process. Reviewed, Interpreted and Dictated by Karel Llanos III, MD Transcribed by Jesse Silva Authenticated and [facility]
--- NOTE | 2022-06-21 11:02 | XR_ITS ---
FINAL REPORT CLINICAL HISTORY: UPPER BACK PAIN FINDINGS: THORACIC SPINE SERIES. AP and lateral views were obtained. There is no acute fracture. There are mild degenerative changes with osteophytes. There is mild S-shaped curvature. There is no malalignment. IMPRESSION: Mild degenerative change. Reviewed, Interpreted and Dictated by Karel Llanos III, MD Transcribed by Jesse Silva Authenticated and [facility]
--- NOTE | 2022-06-21 11:02 | XR_ITS ---
FINAL REPORT TECHNIQUE: Chest PA & Lateral CLINICAL HISTORY: BRONCHITIS COMPARISON: August 2019 FINDINGS: 2 views of the chest were performed. The heart size is normal. The mediastinum is within normal limits. There is no acute cardiopulmonary process. There are no pleural effusions. There is no pneumothorax. The bony thorax appears intact. IMPRESSION: No acute cardiopulmonary process. Reviewed, Interpreted and Dictated by Karel Llanos III, MD Transcribed by Jesse Silva Authenticated and [facility]
== END ==
PROVIDERS: PCP Physician Assistant; Visit Provider Physician Assistant
DX: J40 Bronchitis, not specified as acute or chronic (principal); M54.2 Cervicalgia; M54.6 Pain in thoracic spine
CPT/HCPCS: 71046; 72040; 72072

== ENCOUNTER → 2022-08-04 14:17 | Outpatient (CLI) | payer BC, OTHER, SELFPAY ==
--- NOTE | 2022-08-04 14:27 | XR_ITS ---
FINAL REPORT CLINICAL HISTORY: R HIP PAIN, FINDINGS: RIGHT HIP Two views of the right hip including an AP pelvis demonstrate no acute fracture or dislocation. The joint spaces appear normal. The visualized bony structures are well aligned. No soft tissue abnormality is seen. IMPRESSION: No acute bony abnormality. Reviewed, Interpreted and Dictated by Karel Llanos III, MD Transcribed by Shannan Winter Authenticated and . [facility]
--- NOTE | 2022-08-04 14:28 | XR_ITS ---
FINAL REPORT CLINICAL HISTORY: LOW BACK PAIN FINDINGS: LUMBAR SPINE 5 views of the lumbar spine were obtained. There is no evidence of fracture or dislocation. The vertebral alignment is normal. There are mild degenerative changes with osteophytes. No paraspinous soft tissue abnormalities identified. IMPRESSION: Mild degenerative change with no acute bony abnormality. Reviewed, Interpreted and Dictated by Karel Llanos III, MD Transcribed by Shannan Winter Authenticated and . [facility]
== END ==
PROVIDERS: PCP Physician Assistant; Visit Provider Physician Assistant
DX: M54.50 Low back pain, unspecified (principal); M25.551 Pain in right hip
CPT/HCPCS: 72110; 73502

== ENCOUNTER → 2022-08-22 09:25 | Outpatient (CLI) | payer BC, SELFPAY ==
[2022-08-22 10:22] LABS: Alanine Aminotransferase 24 U/L (12-78); Albumin Level 4.5 g/dl (3.5-5.0); Alkaline Phosphatase 74 U/L (38-126); Aspartate Amino Transferase 27 U/L (14-36); Bilirubin,Direct 0.3 mg/dl (0.0-0.4); Bilirubin,Total 0.3 mg/dl (0.2-1.3); Bilirubin,Unconjugated 0.1 mg/dL (0.0-1.1); Chol/HDL Ratio 2.8 (1-3.5); Cholesterol 179 mg/dl (140-200); HDL Cholesterol 65 mg/dl (40-60); Total Protein,Serum 6.8 g/dl (6.3-8.2); Triglycerides 129 mg/dl (30-150); VLDL Cholesterol 26 mg/dL (0-40)
[2022-08-22 10:33] LABS: Direct LDL Cholesterol 76.63 mg/dL (100-129)
== END ==
PROVIDERS: PCP Physician Assistant; Visit Provider Nurse Practitioner
DX: E78.5 Hyperlipidemia, unspecified (principal); I10 Essential (primary) hypertension
CPT/HCPCS: 36415; 80061; 80076

== ENCOUNTER 2022-10-03 09:00 | Outpatient (RCR) | payer BC, SELFPAY ==
--- NOTE | 2022-08-24 15:06 | HMH.PTOPEV ---
PT Outpatient Evaluation Rehab PT Outpatient Evaluation Start: 08/24/22 14:48 Freq: Status: Active Protocol: Document 08/24/22 14:48 JIMENEZ (Rec: 08/24/22 15:05 JIMENEZ [id number]) E-signed By Jamari Harrison, PT Outpatient Therapy Subjective History Subjective History Pt reports h/o chronic neck pain and right UE s/s since falling backwards in summer. Pt reports striking mid back on exposed electrical outlet, with whiplash type injury to neck and arms. Pt reports neck pain since injury , and bilateral UE radicular s /s as well. Pt reports right > left UE s/s w/pain and weakness in right. Pt reports most severe s/s from right shoulder to elbow. Chief Complaint Pain,Stiff,Paresthesia, Weakness Symptom Type Ache,Throb,Sharp,Dull,Numbness ,Tingling Symptoms Relieved By Prescription Meds Symptoms Aggravated By Bending/Stooping,Physical Activity,Twisting,Lifting Prior Functional Limitations Reaching,Lifting,Housework Current Functional Limitations Reaching,Lifting,Housework, Driving,Sleeping Symptom Description Constant but Variable Level of pain today (0-10) 4 Pain scale - at its best (0-10) 4 Pain scale - at its worst (0-10) 9 Cervical Eval Palpation Cervical Muscles R Cervical Paraspinal,L Cervical Paraspinal,R CT Junction,L CT Junction,R Upper Trapezius,L Upper Trapezius Cervical/Thoracic Palpation Findings Tenderness,Trigger Point, Muscle Guarding Posture Head/C-Spine Posture Sitting Position Flexed Head/C-Spine Posture Standing Position Flexed Flexibility Deficits Upper Trapezius Muscle Length (R) Moderate Tightness,(L) Moderate Tightness Scalene Group Muscle Length (R) Moderate Tightness,(L) Moderate Tightness Passive Joint Mobility Cervical PIVM Dec: R OA L OA R AA L AA R C2/3 L C2/3 R C3/4 L C3/4 R C4/
--- NOTE | 2022-09-25 15:58 | HMH.RHREAS ---
Rehab Reassessment Rehab OP Re-assessment Start: 09/25/22 15:36 Freq: Status: Active Protocol: Document 09/25/22 15:36 JIMENEZ (Rec: 09/25/22 15:58 JIMENEZ [id number]) E-signed By Jamari Harrison, PT Rehab Re-assessment Subjective Subjective Pt reports 0-1/10 neck pain on VAS over the last couple days , and feels 75-80% better overall since I eval Objective Objective Notes CROM: FLX 0-60, EXT 0-40, ERIC. SB 0-45, ERIC. ROT 0-45 MMT: RIGHT SHOULDER/DELTOID 4/ 5, R TRICEP 4/5, LEFT SHOULDER /DELTOID 4/5, L TRICEP 4+/5, ERIC. BICEP 4+-5/5 TTP: RIGHT UT MM 2/4, R CERVICAL 1-2/4, LEFT UT 0-1/4, LEFT CERVICAL PARASPAINALS 1- 2/4 Assessment Progress Assessment Progressing as Expected Assessment Notes IMPROVED TTP, STRENGTH, AND CROM Patient goals met STG'S 04/03 LTG'S 10/04 Goals Not Met LTG'S 02/01 Plan Plan Pt to continue w/skilled P.T. to make further improvements in CROM, strength, and TTP to allow for optimal function Frequency of Therapy 1-2x/wk Duration of therapy 3-4wks Time and Billing Re-Eval Time 12 Re-Eval Billing Units 1 PHYSICIAN CERTIFICATION: I certify the specified therapy services for Zac Hernandez are required, authorized, and reviewed every 30 days.
== END 2022-10-03 09:05 | disposition home or self-care (01) ==
LOC: PT 09:00
PROVIDERS: PCP Physician Assistant; Visit Provider Physician Assistant
DX: M54.12 Radiculopathy, cervical region (principal)
CPT/HCPCS: 97010; 97012; 97014; 97110; 97140; 97163; 97164; 97530; G0283

== ENCOUNTER 2022-10-15 11:16 | Emergency (ER) | payer BC, OTHER, SELFPAY ==
[2022-10-15 11:55] VITALS: BP 125/67; PULSE 89; RESP 18; TEMP 36.8; O2SAT 98; BMI 34.8
[2022-10-15 12:15] LABS: UTC Strep Screen (Rapid) Negative (Negative)
--- NOTE | 2022-10-15 12:27 | EXP.UTC ---
Discharge Plan Disposition Patient Disposition: Home, Self-Care Condition: Good Prescriptions Prescriptions: No Action spironolactone 25 mg tablet 25 mg PO DAILY bisoprolol fumarate 5 mg tablet 2.5 mg PO DAILY montelukast 10 mg tablet 10 mg PO DAILY hydrochlorothiazide 25 mg tablet 25 mg PO DAILY aspirin 81 mg tablet,delayed release (DR/EC) 81 mg PO DAILY albuterol sulfate 90 mcg/actuation HFA aerosol inhaler 2 puff inhalation ONCE PRN vitamin E 268 mg (400 unit) capsule 268 mg PO DAILY meloxicam 15 mg tablet 15 mg PO DAILY omeprazole 40 mg capsule,delayed release(DR/EC) 40 mg PO DAILY duloxetine 30 mg capsule,delayed release(DR/EC) 30 mg PO DAILY levocetirizine 5 mg tablet 5 mg PO DAILY benzonatate 100 mg capsule 100 mg PO TID PRN (Reason: cough) Qty: 30 0RF Referrals Follow up/Referrals: Malina Leigh PA [Primary Care Provider] - See instructions Activity Restrictions/Add. Instructions Additional Instructions/Restrictions: *Monitor Temp, Over the counter Motrin or Tylenol as directed/as needed Tylenol every 4 hours and Motrin every 6 hours (as long as your family doctor has told you that you can take it) for fever or pain. and straight to ER if unable to lower temp less than 101.0 after medication given *Warm salt water gargles may help to soothe the throat *Throat Lozenges? *Warm fluids like tea with honey may help to soothe the throat? *Sleep elevated *Humidifier/Vaporizer Your throat swab was sent for culture. Those results are typically sent to your primary care. Be sure to follow up in 2-3 days with your family doctor/primary care physician if no improvement so they can review those result and treat if necessary. If you don?t have a primary care doctor, I recommend you get one but in the mean time, you will have to return to a walk in clinic Follow up IMMEDIATELY for new or worsening symptoms or no Noticeable improvement over the next 48-72 hours. 911 for difficulty breathing or swallowing You were tested for today for COVID19 your test result should be back in the next 24-48 hours, you may check your results on the [facility] My Health Portal Clinical Impressions Clinical Impression: Viral upper respiratory infection Stand Alone Forms Stand Alone Forms: Work/School Release Instructions Patient Instructions: Sore Throat, DI for Nasal Congestion [place]charge ED Provider: Kaitly[place]ide[place] [facility] [place] General Stated complaint: Sore throat headache congestion Mode of Arrival: Ambulatory Source of Information: Patient Limitations: No Limitations Time Seen by Provider: 10/15/22 12:27 Description of Symptoms (Recalled from Triage Doc. by RN): PATIENT C/O SORE THROAT SINCE YESTERDAY HEENT Symptoms (Recalled from RN notes): Yes Resp Symptoms (Recalled from RN notes): No Skin Symptoms (Recalled from RN notes): No MS Symptoms (Recalled from RN notes): No Functional Status (Recalled from RN notes): WNL History of Present Illness Provider Complaint: Patient states she started yesterday with sore throat and has small blister like area on the roof of her mouth States that today she was feeling achy and tired worried that she may have strep throat so she came in Related Data Home Medications Medication Instructions Recorded Confirmed duloxetine 30 mg capsule,delayed 30 mg PO DAILY . 06/10/22 08/22/22 release levocetirizine 5 mg tablet 5 mg PO DAILY . 06/10/22 08/22/22 meloxicam 15 mg tablet 15 mg PO DAILY . 06/10/22 08/22/22 omeprazole 40 mg capsule,delayed 40 mg PO DAILY GERD 06/10/22 08/22/22 release albuterol sulfate 90 mcg/actuation 2 puff inhalation ONCE PRN 08/22/22 08/22/22 aerosol inhaler aspirin 81 mg tablet,delayed 81 mg PO DAILY 08/22/22 08/22/22 release bisoprolol fumarate 5 mg tablet 2.5 mg PO DAILY 08/22/22 08/22/22 hydrochlorothiazide 25 mg tablet 25 mg PO DAILY 08/22/22 08/22/22 [place]
[2022-10-15 12:42] VITALS: BP 125/67; PULSE 89; RESP 18; TEMP 36.8; O2SAT 98
== END 2022-10-15 12:49 | disposition home or self-care (01) ==
PROVIDERS: Emergency Provider Nurse Practitioner; PCP Physician Assistant
DX: U07.1 COVID-19 (principal); J02.9 Acute pharyngitis, unspecified; R09.89 Other specified symptoms and signs involving the circulatory and respiratory systems
CPT/HCPCS: 87880; 99212; C9803; G0463; U0003; U0005

== ENCOUNTER → 2022-11-08 12:49 | Outpatient (CLI) | payer BC, OTHER, SELFPAY ==
--- NOTE | 2022-11-08 12:58 | MR_ITS ---
FINAL REPORT CLINICAL HISTORY: RIGHT ARM NUMBNESS, LEFT SHOULDER PAIN, FALL IN MAY FINDINGS: Multiplanar MR imaging of the cervical spine was performed without contrast. On the sagittal T2-weighted images, disc degeneration is seen throughout. There is no evidence of fracture. The vertebral alignment is normal. The cervical spinal cord has an unremarkable appearance without evidence of mass, edema or syrinx. No significant canal stenosis is identified. The cervicomedullary junction is normal. C2-3: There is no significant canal stenosis or neural foraminal narrowing. C3-4: There is no significant canal stenosis or neural foraminal narrowing. C4-5: Bilateral uncovertebral osteophytes are present. There is a right foraminal disc protrusion with severe right neural foraminal narrowing. C5-6: An annular disc bulge is present with bilateral uncovertebral osteophytes and mild bilateral neural foraminal narrowing. C6-7: An annular disc bulge is present with a small central disc protrusion. C7-T1: There is no significant canal stenosis or neural foraminal narrowing. T1-2: There is no significant canal stenosis or neural foraminal narrowing. IMPRESSION: Degenerative disc disease throughout with disc protrusions at C4-5 and C6-7 and neural foraminal narrowing at C4-5 and C5-6. Reviewed, Interpreted and Dictated by Karel Llanos III, MD Transcribed by Shannan Winter Authenticated and [facility]
== END ==
PROVIDERS: PCP Physician Assistant; Visit Provider Physician Assistant
DX: M54.12 Radiculopathy, cervical region (principal); R29.898 Other symptoms and signs involving the musculoskeletal system
CPT/HCPCS: 72141; 76376

== ENCOUNTER → 2023-08-23 10:04 | Outpatient (CLI) | payer BC, OTHER, SELFPAY ==
[2023-08-23 10:34] LABS: Basophils % 0.4 % (0.1-2.0); Eosinophils # 0.1 K/mm3 (0.0-0.4); Eosinophils % 1.1 % (0.1-12.0); Hematocrit 41.7 % (37.0-47.0); Hemoglobin 14.2 g/dL (12.2-16.2); Lymphocytes # 2.8 K/mm3 (0.7-4.5); Lymphocytes % 33.6 % (10-50); Mean Corpuscular Hemoglobin 30.2 pg (27.0-31.2); Mean Corpuscular Volume 88.9 fl (81-99); Mean Platelet Volume 9.3 fl (7.4-10.4); Monocytes # 0.5 K/mm3 (0.1-1.0); Monocytes % 5.6 % (1.7-9.3); Neutrophils % 59.3 % (37.0-80.0); Platelet Count 292 K/mm3 (142-424); Red Blood Count 4.69 M/mm3 (4.20-5.40); Red Cell Distribution Width 13.4 % (11.5-17.5); White Blood Count 8.4 K/mm3 (4.8-10.8)
[2023-08-23 10:49] LABS: Chloride 102 mmol/L (98-107); Potassium 4.9 mmoL/L (3.5-5.1); Sodium 139 mmol/L (136-145)
[2023-08-23 10:51] LABS: Blood Urea Nitrogen 14 mg/dl (7-17); Estimated Glomerular Filt Rate 64 ml/min (>60); GFR (African American) 77 ML/MIN (>60)
[2023-08-23 10:52] LABS: Alanine Aminotransferase 28 U/L (12-78); Albumin Level 4.6 g/dl (3.5-5.0); Alkaline Phosphatase 61 U/L (38-126); Anion Gap 12.9 mEq/L (5-15); Aspartate Amino Transferase 33 U/L (14-36); Bilirubin,Direct 0.4 mg/dl (0.0-0.4); Bilirubin,Total 0.4 mg/dl (0.2-1.3); Calcium 9.7 mg/dl (8.4-10.2); Carbon Dioxide 29 mmol/L (22.0-30.0); Cholesterol 192 mg/dl (140-200); Glucose 98 mg/dl (74-100); HDL Cholesterol 65 mg/dl (40-60); Total Protein,Serum 7.2 g/dl (6.3-8.2); Triglycerides 120 mg/dl (30-150); VLDL Cholesterol 24 mg/dL (0-40)
[2023-08-23 11:03] LABS: Direct LDL Cholesterol 95.27 mg/dL (100-129)
[2023-08-23 11:21] LABS: Thyroid Stimulating Hormone 2.25 uIU/mL (0.465-4.68)
== END ==
LOC: LAB 10:05
PROVIDERS: PCP Physician Assistant; Visit Provider Internal Medicine
DX: E78.5 Hyperlipidemia, unspecified (principal); I11.9 Hypertensive heart disease without heart failure; R06.00 Dyspnea, unspecified
CPT/HCPCS: 36415; 80048; 80061; 80076; 84439; 84443; 85025

== ENCOUNTER 2023-11-29 15:00 | Outpatient (RCR) | payer BC, OTHER, SELFPAY | END 2023-11-29 16:00 | disposition home or self-care (01) | LOC: PT 15:00 | PROVIDERS: PCP Physician Assistant; Visit Provider Clinical Nurse Specialist Family Health | DX: M54.16 Radiculopathy, lumbar region (principal) | CPT/HCPCS: 97012; 97110; 97163; 97164; 97530 ==

== ENCOUNTER 2024-06-24 08:09 | Emergency (ER) | payer BC, OTHER, SELFPAY ==
[2024-06-24 09:05] VITALS: BP 146/73; PULSE 64; RESP 18; TEMP 36.6; O2SAT 99; BMI 35.4
--- NOTE | 2024-06-24 09:19 | EXP.UTC ---
Discharge Plan Disposition Patient Disposition: Home, Self-Care Condition: Good Prescriptions Prescriptions: New levofloxacin 500 mg tablet 500 mg PO DAILY Qty: 7 0RF methylprednisolone 4 mg Tablets,Dose Pack 4 mg PO DIRECTED 6 Days Qty: 21 0RF Rx Instructions: Take 1 pack as directed for 6 days No Action meloxicam 15 mg tablet 15 mg PO DAILY omeprazole 40 mg capsule,delayed release(DR/EC) 40 mg PO DAILY bisoprolol fumarate 5 mg tablet 5 mg PO DAILY cyanocobalamin (vitamin B-12) 1,000 mcg/mL solution 1,000 mcg IM MONTHLY montelukast 10 mg tablet 10 mg PO DAILY hydrochlorothiazide 25 mg tablet 25 mg PO DAILY gabapentin 100 mg capsule 100 mg PO DAILY duloxetine 30 mg capsule,delayed release(DR/EC) 30 mg PO DAILY Referrals Follow up/Referrals: Malina Leigh PA [Primary Care Provider] - See instructions Activity Restrictions/Add. Instructions Additional Instructions/Restrictions: Drink plenty of fluids. Take tylenol or ibuprofen for pain or fever. Take the medications as directed. Follow up with your regular doctor. GO TO THE ER FOR ANY WORSENING SYMPTOMS Clinical Impressions Clinical Impression: Asthma exacerbation Qualifiers: Asthma severity: unspecified severity Asthma persistence: unspecified Qualified Code(s): J45.901 - Unspecified asthma with (acute) exacerbation Instructions Patient Instructions: Asthma -- Adult, DI for Asthma -- Adult, Methylprednisolone, Levofloxacin Print Language Print Language: Japanese Discharge ED Provider: Raf Hernandez [facility] [place] General Stated complaint: cough, congestion, sore throat Mode of Arrival: Ambulatory Source of Information: Patient Limitations: No Limitations Time Seen by Provider: 06/24/24 09:19 Description of Symptoms (Recalled from Triage Doc. by RN): PATIENT C/O CONGESTION, COUGH, AND GREEN DRAINAGE/MUCOUS THAT STARTED YESTERDAY HEENT Symptoms (Recalled from RN notes): Yes Resp Symptoms (Recalled from RN notes): Yes Skin Symptoms (Recalled from RN notes): No MS Symptoms (Recalled from RN notes): No Functional Status (Recalled from RN notes): WNL Related Data Home Medications ?Medication ?Instructions ?Recorded ?Confirmed bisoprolol fumarate 5 mg tablet 5 mg PO DAILY 06/24/24 06/24/24 cyanocobalamin (vitamin B-12) 1,000 mcg IM MONTHLY 06/24/24 06/24/24 1,000 mcg/mL injection solution duloxetine 30 mg capsule,delayed 30 mg PO DAILY 06/24/24 06/24/24 release gabapentin 100 mg capsule 100 mg PO DAILY 06/24/24 06/24/24 hydrochlorothiazide 25 mg tablet 25 mg PO DAILY 06/24/24 06/24/24 meloxicam 15 mg tablet 15 mg PO DAILY 06/24/24 06/24/24 montelukast 10 mg tablet 10 mg PO DAILY 06/24/24 06/24/24 omeprazole 40 mg capsule,delayed 40 mg PO DAILY 06/24/24 06/24/24 release Previous Rx's ?Medication ?Instructions ?Recorded levofloxacin 500 mg tablet 500 mg PO DAILY #7 tabs 06/24/24 methylprednisolone 4 mg tablets in 4 mg PO DIRECTED 6 days #21 tabs 06/24/24 a dose pack Allergies Allergy/AdvReac Type Severity Reaction Status Date / Time clarithromycin [From BIAXIN] Allergy Unknown Verified 08/23/23 09:08 Worker's Comp Is this a Worker's Comp case?: No [facility] Disclaimer: The information contained in this section may have been updated after the patient was seen, as this information can be updated by other users. Medical History Abnormal stress test Asthma Atypical angina Atypical chest pain Coronary artery calcification seen on CT scan Edema of both lower extremities HLD (hyperlipidemia) HTN (hypertension) Surgical History History of cardiac catheterization History of hysterectomy History of tubal ligation Social History Smoking Status: Never smoker alcohol intake: never substance use type: denies use current occupational status: employed Travel in the last 8 weeks: None household members: spouse housing: house ROS Obtained: Yes All systems reviewed & no additional complaints except as documented Constitutional Constitutional: Reports chills and Reports fever(s) Eyes Eyes: Denies eye discharge ENT Ears, Nose, Mouth, and Throat: Reports as per HPI Cardiovascular Cardiovascular: Denies chest pain Respiratory Respiratory: Denies shortness of breath, Reports chest congestion, Reports cough, Denies stridor and Denies wheezing Gastrointestinal Gastrointestingal: Reports nausea; Denies abdominal pain, constipation, cramping, diarrhea or vomiting Musculoskeletal Musculoskeletal: Denies arthralgias Integumentary/Breasts Skin/Breast: Denies rash Neurologic Neurologic: Denies paresthesias Allergic/Immunologic Allergic/Immunologic: Denies wheezing Physical Exam General General appearance: alert and in no apparent distress Eye Eye exam: Present normal appearance, PERRL and EOMI ENT ENT exam: Present mucous membranes moist and normal external ear exam Expanded ENT Exam External ear exam: Present normal external inspection TM/Canal exam: Bilateral TM: erythema and bulging Nose exam: Absent sinus tenderness Nasal speculum exam: Bilateral: normal Mouth exam: Present normal external inspection; Absent drooling Teeth exam: Present normal inspection Throat exam: Present tonsillar erythema and tonsillomegaly Neck Neck exam: Present normal inspection, full ROM and trachea midline; Absent tenderness, lymphadenopathy or thyromegaly Chest Chest inspection: Present normal inspection and symmetric chest wall rise; Absent tenderness or rash Respiratory Respiratory exam: Present normal lung sounds bilaterally; Absent respiratory distress, wheezes, stridor or accessory muscle use Cardiovascular Cardiovascular exam: Present regular rate, normal rhythm and normal heart sounds Abdominal Exam Abdominal exam: Present soft; Absent distention, tenderness, guarding, rebound or rigidity Extremities Exam Extremities exam: Present normal inspection, full ROM and normal capillary refill; Absent tenderness or calf tenderness Back Exam Back exam: Present normal inspection and full ROM; Absent tenderness Neurological Exam Neurological exam: Present alert and oriented X3 Psychiatric Psychiatric exam: Present normal affect and normal mood Skin Skin exam: Present warm, dry, intact and normal color Lymphatic Lymphatic Findings: no adenopathy Medical Decision Making Medical Records Medical records reviewed: No I reviewed the patient's medical records. Screening: Per USPSTF and CDC recommendations, given the prevalence of disease in our region, it is our hospital?s policy to screen for HIV and viral Hepatitis for all patients aged 18 and over and those with ongoing risk factors. Sajan Inquiry Pt receiving controlled substance: No Vital Signs: 06/24/24 09:05 Temperature 97.9 F Temperature Source Oral Pulse Rate [Left Brachial] 64 Respiratory Rate 18 Blood Pressure [Left Arm] 146/73 H Blood Pressure Mean [Left Arm] 97 Blood Pressure Source [Left Arm] Automatic Cuff Blood Pressure Position [Left Arm] Sitting 02 Sat by Pulse Oximetry 99 Oxygen Delivery Method Room Air Lab Data Lab results reviewed: Yes I reviewed the patient's lab results.
[2024-06-24 09:30] VITALS: BP 146/73; PULSE 64; RESP 18; TEMP 36.6; O2SAT 99
== END 2024-06-24 09:32 | disposition home or self-care (01) ==
PROVIDERS: Emergency Provider Nurse Practitioner Family; PCP Physician Assistant
DX: J45.901 Unspecified asthma with (acute) exacerbation (principal)
CPT/HCPCS: 99213; G0381

== ENCOUNTER 2024-08-11 11:36 | Outpatient (CLI) | payer BC, OTHER, SELFPAY ==
[2024-08-11 12:15] LABS: Basophils % 0.3 % (0.1-2.0); Eosinophils # 0.2 K/mm3 (0.0-0.4); Eosinophils % 1.9 % (0.1-12.0); Hematocrit 39.8 % (37.0-47.0); Hemoglobin 14.6 g/dL (12.2-16.2); Lymphocytes % 33.7 % (10-50); Mean Corpuscular HGB Conc 36.6 g/dL (31.8-35.4); Mean Corpuscular Hemoglobin 32.6 pg (27.0-31.2); Mean Corpuscular Volume 89.2 fl (81-99); Mean Platelet Volume 8.3 fl (7.4-10.4); Monocytes # 0.5 K/mm3 (0.1-1.0); Neutrophils # 5.1 K/mm3 (1.8-7.8); Neutrophils % 58.1 % (37.0-80.0); Platelet Count 277 K/mm3 (142-424); Red Blood Count 4.46 M/mm3 (4.20-5.40); Red Cell Distribution Width 13.4 % (11.5-17.5); White Blood Count 8.8 K/mm3 (4.8-10.8)
[2024-08-11 12:33] LABS: Albumin Level 4.4 g/dl (3.5-5.0); Chloride 101 mmol/L (98-107); Potassium 4.6 mmoL/L (3.5-5.1); Sodium 133 mmol/L (136-145)
[2024-08-11 12:35] LABS: Blood Urea Nitrogen 14 mg/dl (7-17); Estimated Glomerular Filt Rate 73 ml/min (>60); GFR (African American) 88 ML/MIN (>60)
[2024-08-11 12:36] LABS: Alanine Aminotransferase 24 U/L (12-78); Alkaline Phosphatase 63 U/L (38-126); Anion Gap 8.6 mEq/L (5-15); Aspartate Amino Transferase 31 U/L (14-36); Bilirubin,Direct 0.3 mg/dl (0.0-0.4); Bilirubin,Total 0.3 mg/dl (0.2-1.3); Calcium 9.6 mg/dl (8.4-10.2); Carbon Dioxide 28 mmol/L (22.0-30.0); Cholesterol 169 mg/dl (140-200); Glucose 94 mg/dl (74-100); Total Protein,Serum 6.6 g/dl (6.3-8.2); Triglycerides 146 mg/dl (30-150); VLDL Cholesterol 29 mg/dL (0-40)
[2024-08-11 12:37] LABS: Chol/HDL Ratio 2.3 (1-3.5); HDL Cholesterol 75 mg/dl (40-60); Magnesium 1.9 mg/dl (1.6-2.3)
[2024-08-11 12:48] LABS: Direct LDL Cholesterol 66.76 mg/dL (100-129)
[2024-08-11 12:53] LABS: Free T4 (Free Thyroxine) 0.91 ng/dl (0.78-2.19)
[2024-08-11 13:07] LABS: Thyroid Stimulating Hormone 1.46 uIU/mL (0.465-4.68)
== END 2024-08-11 23:59 | disposition home or self-care (01) ==
LOC: LAB 11:37
PROVIDERS: Visit Provider Internal Medicine
DX: E78.2 Mixed hyperlipidemia (principal); I51.89 Other ill-defined heart diseases; I10 Essential (primary) hypertension
CPT/HCPCS: 36415; 80048; 80061; 80076; 83735; 84439; 84443; 85025

== ENCOUNTER 2025-06-18 14:41 | Outpatient (CLI) | payer BC, OTHER, SELFPAY ==
--- NOTE | 2025-06-18 14:45 | XR_ITS ---
FINAL REPORT CLINICAL HISTORY: UNSPECIFIED ASTHMA TESTED [place] FOR TB [place] [id number] COMPARISON: 06/21/2022 FINDINGS: No acute pulmonary density is evident. There is no evidence of effusion or other pleural disease. The mediastinum has a normal appearance. The cardiac silhouette is unremarkable. IMPRESSION: No acute findings, stable from prior. Reviewed, Interpreted and Dictated by Dasia Beach MD Transcribed by Kristie Kaplan Authenticated and [facility]
--- OUTSIDE RECORDS SUMMARY | 2025-06-18 15:04 | XMS_ITS | Clinical Summary ---
Author Organization [facility] Address [address] [place] [address] Care Team Providers Care Network Coordinator Name Role Phone Boo French MD Primary Care Provider [phone] Family History Medical History Relation Name Comments Ovarian cancer Maternal Cousin 20's Breast cancer Paternal Aunt ? Breast cancer Sister Relation Name Status Comments Maternal Cousin Paternal Aunt Sister Social History Tobacco Use Types Packs/Day Years Used Date Smoking Tobacco: Never Assessed Comments No Sex and Gender Information Value Date Recorded Sex Assigned at Not on file Legal Sex Female 10:31 AM EDT Gender Identity Not on file Sexual Orientation Not on file Plan of Treatment Health Maintenance Due Date Last Done Comments Annual Gynecologic Pelvic an d Breast Exam 1962 TDAP/TD VACCINES (1 - Tdap) 1981 COLOGUARD 2007 COLON CANCER SCREENING 5 YEA R SIGMOIDOSCOPY 2007 COLONOSCOPY [address] CANCER SCREENING [address] CT COLONOGRAPHY 2007 FECAL OCCULT BLOOD TEST 2007 FIT Testing (1 year) 2007 ZOSTER VACCINE (1 of 2) 2012 Pneumococcal Vaccine 50+ (2 of 2 - PCV) 11/07/2014 11/07/2013, 11/07/2013, 08/27/2013 ANNUAL PHYSICAL 01/26/2025 HEPATITIS C SCREENING 01/26/2025 INFLUENZA VACCINE 03/27/2025 06/09/2020, , 08/09/2017, Additional history exists MAMMOGRAM 02/09/2027 02/09/2025, 12/2023, 11/13/2022, Additional history exists Procedures Procedure Name Priority Date/Time Associated Diagnosis Comments MAMMO SCREENING DIGITAL TOMOSYNTHESIS BILATERAL W CAD Routine 02/09/2025 10:55 AM EDT Encounter for screening mammogram for malignant neoplasm of breast from Last 3 Months or Most Recently Relevant to Health Maintenance Results * Mammo Screening Digital Tomosynthesis Bilateral With CAD (02/09/2025 10:55 AM EDT) Anatomical Region Laterality Modality Breast N/A Mammography 02/12/2025 11:3 6 AM EDT Impressions 02/12/2025 11:40 AM EDT No mammographic findings suspicious for malignancy. RECOMMENDATION: Continue annual screening mammography. BI-RADS CATEGORY 1, NEGATIVE. CAD was utilized. The standard false-negative rate of mammography is between 10% and 25%. Complex patterns or increased breast density will markedly elevate the false-negative rate of mammography. A letter, in lay terminology, with the results of this exam will be mailed to the patient. 02/12/2025 11:[address] Gissel Hays MD on Narrative 02/12/2025 11:40 AM EDT BILATERAL SCREENING MAMMOGRAM WITH TOMOSYNTHESIS: HISTORY: 64-year-old patient with no personal history of breast cancer and no new breast complaints. Her sister and a paternal aunt were diagnosed with breast cancer. The Tyrer-Cuzick risk assessment model revealed that the patient has a 16.2% estimated lifetime risk for developing breast cancer. She is considered intermediate risk according to this model. TECHNIQUE: Bilateral CC and MLO low dose, full field digital mammographic images were obtained with tomosynthesis. COMPARISON: 01/30/2024, 11/13/2022, 11/11/2021, 10/26/2020, 10/02/2019, 09/11/2018, 1118, 08/24/2016 FINDINGS: There are scattered areas of fibroglandular density. The fibroglandular pattern is stable. There are no suspicious masses, worrisome calcifications, nonsurgical areas of architectural distortion, or other secondary signs of malignancy. us Boo French MD IMG MAMMOGRAPHY ORDERABLES F inal Result from Last 3 Months or Most Recently Relevant to Health Maintenance Insurance [facility] BLUE CROSS BLUE SHIELD PPO Advance Directives Documents on File Type Date Recorded Patient Paper Sealer Expl anation LIVING WILL - SCAN 10/19/2022 6:52 AM POWER OF WOOD HEEL FITTER MACHINE - SCAN 10/02/2019 8:24 AM POA 09/23/2012 Care Teams Network Coordinator Relationship Specialty Start Date End Date Boo French MD [address] [place] [address] PCP - General 08/23/15
--- OUTSIDE RECORDS SUMMARY | 2025-06-18 15:05 | XMS_ITS | Clinical Summary ---
Author Organization [employer] ([place], [place], [place], [place]) Address [address] [place] [address] Care Team Providers Care Studio Designer Name Role Phone Raf Denson MD Primary Care Provider Allergies Active Allergy Reactions Criticality Noted Date Comments Clarithromycin Rash Low 12/18/2022 Medications omeprazole (PriLOSEC) 40 MG capsule Take 1 capsule (40 mg total) by mouth daily. 12/13/19 23 Active meloxicam (MOBIC) 15 MG tablet Take 1 tablet (15 mg total) by mouth daily. 12/13/19 23 Active hydroCHLOROthi azide (HYDRODIURIL) 25 MG tablet Take 1 tablet (25 mg total) by mouth daily. 10/12/19 23 Active bisoprolol (ZEBETA) 5 MG tablet Take by mouth daily. 10/12/19 23 Active spironolactone (ALDACTONE) 25 MG tablet spironolactone 25 mg tablet TAKE 1 TABLET BY MOUTH ONCE DAILY Active montelukast (SINGULAIR) 10 mg tablet montelukast 10 mg tablet TAKE ONE TABLET BY MOUTH EVERY DAY Active gabapentin (NEURONTIN) 300 MG capsule Take 1 capsule (300 mg total) by mouth 2 (two) times daily. 02/01/20 23 Active albuterol HFA (VENTOLIN HFA) 90 mcg/actuation inhaler Inhale 2 puffs by mouth via inhaler every 6 (six) hours as needed. Active aspirin 81 MG EC tablet Take 1 tablet (81 mg total) by mouth daily. Active budesonide-for moteroL (SYMBICORT) 160-4.5 mcg/actuation inhaler SMART[employer]:Via Inhaler 03/08/20 24 Active cyanocobalamin (VITAMIN B-12) 1,000 mcg/mL injectionIndic ations:B12 deficiency Inject 1 mL (1,000 mcg total) intramuscularly every 30 (thirty) days. 10 mL 1 02/07/20 24 Active DULoxetine (CYMBALTA) 30 MG capsuleIndicat ions:Depressiv e disorder TAKE 1 CAPSULE BY MOUTH EVERY MORNING 30 capsule 01/21/20 25 Active Active Problems Problem Noted Date Diagnosed Date Encounter for general adult medical examination without abnormal findings 12/18/2022 Arthritis 12/09/2019 Asymptomatic menopausal state 12/09/2019 Atypical chest pain 12/09/2019 Depressive disorder 12/09/2019 Dizziness and giddiness 12/09/2019 Fatigue 12/09/2019 Palpitations 12/09/2019 Asthma 09/01/2019 Allergic rhinitis 09/01/2019 Adult bronchiectasis 05/14/2017 Gastroesophageal reflux disease without esophagi tis 05/14/2017 Hypertension 04/17/2017 Immunizations Immunization Administration Dates Next Due Covid 19 Vaccine, Unspecified 11/03/2020 Influenza Four-qiv Pf 06/09/2020,06/20/2018,07/27 Influenza Three-TIV Non-PF 4+YRS IM 06/01/2015 Influenza Three-TIV Non-PF 5+ YR 08/27/2013 Pneumococcal Polysaccharide (Pneumovax) 11/08/19 14,11/07/2013,08/27/2013 Family History Medical History Relation Name Comments Hypertension Father Cancer Maternal Grandfather Cancer Maternal Grandmother Cancer Maternal Uncle Cancer Mother Heart disease Paternal Grandmother Relation Name Status Comments Father Maternal Grandfather Maternal Grandmother Maternal Uncle Mother Paternal Grandmother Social History Tobacco Use Types Packs/Day Years Used Date Smoking Tobacco: Never Smokeless Tobacco: Never Tobacco Cessation:Counseling Given: Not Answered Alcohol Use Standard Drinks/Week Comments Yes 0 (1 standard drink = 0.6 oz pur e alcohol) Exercise Vital Sign Answer Date Recorde d On average, how many days pe r week do you engage in moderate to strenuous exercise (like a brisk walk)? 0 days 12/18/2022 On average, how many minutes do you engage in exercise at this level? 0 min 12/18/2022 Food Insecurity Answer Date Recorded Food run out past 12 months Not on file 08/27 Food did not last past 12 months Not on file 09/13/2023 Employment Answer Date Recorded Help finding and keeping a job Not on file 0 09/13/2023 Family and Community Support Answer Silas e Recorded Help with Day to Day Activities Not on file 09/13/2023 Feeling Lonely or Isolated Not on file 09/13 Educational Attainment Answer Date Dax rded Speak language other than Paraguayan at home Not on file 09/13/2023 Want help with school or training Not on file 09/13/2023 Substance Use Answer Date Recorded Used prescription meds for non-medical reasons N ot on file 09/13/2023 Used illegal drugs past 12 months Not on file 09/13/2023 Comments Unknown Sex and Gender Information Value Date Recorded Sex Assigned at Not on file Legal Sex Female 5:53 PM CDT Gender Identity Not on file Sexual Orientation Not on file Last Filed Vital Signs Vital Sign Reading Time Taken Comments Blood Pressure 131/65 02/07/2024 10:03 AM EDT Pulse 60 02/07/2024 10:03 AM EDT Temperature 36.2 C (97.2 F) 02/07/2024 10:03 AM EDT Respiratory Rate 16 03/12/2023 1:06 PM EDT Oxygen Saturation 98% 02/07/2024 10:03 AM EDT Inhaled Oxygen Concentration - - Weight 95.5 kg (210 lb 9.6 oz) 02/07/2024 10:03 AM EDT Height 167.6 cm (5' 6 ) 02/07/2024 10:03 AM EDT Body Mass Index 33.99 02/07/2024 10:03 AM EDT Plan of Treatment Health Maintenance Due Date Last Done Comments CT Colonography 1962 Colonoscopy 1962 Colorectal Cancer Screening 1962 FOBT/FIT 1962 Fit-DNA (Cologuard) 1962 Sigmoidoscopy 1962 HIV Screening 1977 Hepatitis C Screening 1980 DTAP/TDAP/TD VACCINES (1 - Tdap) 1981 Pap Smear 1983 Breast Cancer Screening 2002 Shingles Vaccine (Zoster) (1 of 2) 2012 Pneumococcal 50+ years (2 of 2 - PCV) 11/07/2014 11/07/2013, 11/07/2013, 08/27/2013 Respiratory Syncytial Virus (RSV) Adult or (1 - Risk 60-74 years 1-dose series) 2022 Tobacco Cessation Counseling and Screening (12+) 02/06/2025 02/07/2024 COVID-19 VACCINE (3 - season) 04/27/202505/2021, 11/03/2020 Influenza Vaccine (#1) 2025 06/01/2015, 2013 Lipid Panel 02/06/2027 02/07/2024 Procedures Procedure Name Priority Date/Time Associated Diagnosis Comments LIPID PANEL Routine 02/07/2024 10:55 AM EDT Class 2 severe obesity due to excess calories with serious comorbidity and body mass index (BMI) of 35.0 to 35.9 in adult (HCC) from Last 3 Months or Most Recently Relevant to Health Maintenance Results * Lipid panel (02/07/2024 10:55 AM EDT) [facility] Cholesterol, Total 184 100 - 199 mg/dL [facility] Triglycerides 127 0 - 149 mg/dL [facility] HDL Cholesterol 68 >39 mg/dL [facility] VLDL Cholesterol Satinder 22 5 - 40 mg/dL [facility] LDL Calculated 94 0 - 99 mg/dL [facility] Blood 02/07/2024 10:5 5 AM EDT 02/07/2024 Narrative [facility] - 02/08/2024 7:09 AM EDT Performed at: 01 - [facility] [address] [id number] Tungsten Refiner: Christopher Martini PhD, Phone: [phone] us Raf Denson MD LAB BLOOD ORDERABLES Final Res ult [facility] from Last 3 Months or Most Recently Relevant to Health Maintenance Insurance BLUE CROSS/BLUE SHIELD Care Teams Studio Designer Relationship Specialty Start Date End Date Raf Denson MD [address] [address] PCP - General Internal Medicine 02/05/23
--- OUTSIDE RECORDS SUMMARY | 2025-06-18 15:05 | XMS_ITS | Referral Summary ---
Author Organization [employer] ([place], [place], [place], [place]) Address [address] [place] [address] Care Team Providers Care Broadcaster Name Role Phone Raf Denson MD Primary Care Provider [phone] Allergies Active Allergy Reactions Criticality Noted Date [...] YR 08/27/2013 Pneumococcal Polysaccharide (Pneumovax) 11/08/19 14,11/07/2013,08/27/2013 Social History Tobacco Use Types Packs/Day Years [...] Date Dax rded Speak language other than Mosotho at home Not on file 09/13/2023 Want [...] 02/07/2024 10:03 AM EDT Plan of Treatment Not on file Procedures Procedure Name Priority Date/Time Associated Diagnosis Comments LIPID PANEL Routine 02/07/2024 10:55 AM EDT Class 2 severe obesity due to excess calories with serious comorbidity and body mass index (BMI) of 35.0 to 35.9 in adult (HCC) from Last 3 Months or Most Recently Relevant to Health Maintenance Results * Lipid panel (02/07/2024 10:55 AM EDT) Cholesterol, Total 184 100 - 199 mg/dL [facility] Triglycerides 127 0 - 149 mg/dL [facility] HDL Cholesterol 68 >39 mg/dL [facility] VLDL Cholesterol Satinder 22 5 - 40 mg/dL [facility] LDL Calculated 94 0 - 99 mg/dL [facility] Blood 02/07/2024 10:5 5 AM EDT 02/07/2024 Narrative [facility] - 02/08/2024 7:09 AM EDT Performed at: 01 - [facility] [address] [id number] Cut Out Press Operator: Christopher Martini PhD, Phone: [phone] us Raf Denson MD LAB BLOOD ORDERABLES Final Res ult [facility] from Last 3 Months or Most Recently Relevant to Health Maintenance Insurance BLUE CROSS/BLUE SHIELD Care Teams Broadcaster Relationship Specialty Start Date End Date Raf Denson MD [address] [address] PCP - General Internal Medicine 02/05/23
--- OUTSIDE RECORDS SUMMARY | 2025-06-18 15:05 | XMS_ITS | Encounter Summary ---
Author Organization [employer] ([place], [place], [place], [place]) Address [address] [place] [address] Care Team Providers Care Transcript Clerk Name Role Phone Raf Denson MD Primary Care Provider [phone] Reason for Visit * Reason Comments Medication Refill Encounter Details Date Type Department Care Team (Late st Contact Info) Description 08/22/2023 Refill [facility] [address] [facility] [address] [place] [address] Marleny Rico PA-C [address] [place], [place] [id number] Social History Tobacco Use Types Packs/Day Years Used Date Smoking Tobacco: Never Smokeless Tobacco: Never Alcohol Use Standard Drinks/Week Comments Yes 0 (1 standard drink = 0.6 oz pur e alcohol) Exercise Vital Sign Answer Date Recorde d On average, how many days pe r week do you engage in moderate to strenuous exercise (like a brisk walk)? 0 days 12/18/2022 On average, how many minutes do you engage in exercise at this level? 0 min 12/18/2022 Comments Unknown Sex and Gender Information Value Date Recorded Sex Assigned at Not on file Legal Sex Female 5:53 PM CDT Gender Identity Not on file Sexual Orientation Not on file documented as of this encounter Plan of Treatment Not on file documented as of this encounter Visit Diagnoses Not on filedocumented in this encounter Care Teams Transcript Clerk Relationship Specialty Start Date End Date Raf Denson MD [address] [facility] [address] [place] [address] PCP - General Internal Medicine 02/05/23 documented as of this encounter
--- OUTSIDE RECORDS SUMMARY | 2025-06-18 15:05 | XMS_ITS | Encounter Summary ---
Author Organization [employer] ([place], [place], [place], [place]) Address [address] [place] [address] Care Team Providers Care Process Controls Technician Name Role Phone Raf Denson MD Primary Care Provider [phone] Reason for Visit * Reason Comments Medication Refill Encounter Details Date Type Department Care Team (Late st Contact Info) Description 04/12/2023 [facility] [employer] [address] [facility] [address] [place] [address] Marleny Rico PA-C [address] [place], [place] [id number] Social History Tobacco Use Types Packs/Day Years [...] on filedocumented in this encounter Care Teams Process Controls Technician Relationship Specialty Start Date End Date Raf Denson MD [address] [facility] [address] [place] [address] PCP - General Internal Medicine 02/05/23 documented as of this encounter
--- OUTSIDE RECORDS SUMMARY | 2025-06-18 15:05 | XMS_ITS | Encounter Summary ---
Author Organization [employer] ([place], [place], [place], [place]) Address [address] [place] [address] Care Team Providers Care Sketch Artist Name Role Phone Raf Denson MD Primary Care Provider [phone] Reason for Visit * Reason Comments Medication Refill Encounter Details Date Type Department Care Team (Late st Contact Info) Description 01/17/2024 Refill [facility] [address] [facility] [address] [place] [address] Marleny Rico PA-C [address] [place] [address] Social History Tobacco Use Types Packs/Day Years [...] Date Dax rded Speak language other than Sami at home Not on file 09/13/2023 Want [...] on filedocumented in this encounter Care Teams Sketch Artist Relationship Specialty Start Date End Date Raf Denson MD [address] [address] PCP - General Internal Medicine 02/05/23 documented as of this encounter
--- OUTSIDE RECORDS SUMMARY | 2025-06-18 15:05 | XMS_ITS | Encounter Summary ---
Author Organization [employer] ([place], [place], [place], [place]) Address [address] [place] [address] Care Team Providers Care Street And Building Decorator Name Role Phone Raf Denson MD Primary Care Provider [phone] Reason for Visit * Reason Comments Medication Refill Encounter Details Date Type Department Care Team (Late st Contact Info) Description 12/31/2023 Refill [facility] [address] [facility] [address] [place] [address] Marleny Rico PA-C [address] [place] [address] Social History Tobacco Use Types Packs/Day Years [...] Date Dax rded Speak language other than Greenlandic at home Not on file 09/13/2023 Want [...] on filedocumented in this encounter Care Teams Street And Building Decorator Relationship Specialty Start Date End Date Raf Denson MD [address] [address] PCP - General Internal Medicine 02/05/23 documented as of this encounter
--- OUTSIDE RECORDS SUMMARY | 2025-06-18 15:05 | XMS_ITS | Clinical Summary ---
Author Organization [facility] Address [address] [place] [address] Care Team Providers Care Service Aide Name Role Phone Boo French MD Primary Care Provider [phone] Immunizations Immunization Administration Dates Next Due Influenza, seasonal, injectable 08/27/2013 Pneumococcal Polysaccharide PPV23 08/27/2013 Family History Medical History Relation Name Comments Coronary artery disease Other 1 Hypertension Other 2 Other cancer Other 3 Relation Name Status Comments Other 1 Other 2 Other 3 Social History Tobacco Use Types Packs/Day Years Used Date Smoking Tobacco: Never Comments Unknown Sex and Gender Information Value Date Recorded Sex Assigned at Not on file Legal Sex Female 8:04 PM EDT Gender Identity Not on file Sexual Orientation Not on file Last Filed Vital Signs Vital Sign Reading Time Taken Comments Blood Pressure - - Pulse - - Temperature - - Respiratory Rate - - Oxygen Saturation - - Inhaled Oxygen Concentration - - Weight 84.4 kg (186 lb) 05/19/2015 11:33 AM EDT Height 167.6 cm (5' 6 ) 05/19/2015 11:33 AM EDT Body Mass Index 30.02 05/19/2015 11:33 AM EDT Plan of Treatment Not on file Care Teams Service Aide Relationship Specialty Start Date End Date Boo French MD [address] [place] [address] PCP - General 01/07/21
--- OUTSIDE RECORDS SUMMARY | 2025-06-18 15:05 | XMS_ITS | Clinical Summary ---
Author Organization [facility] Address [address] [place] [address] Phone Care Team Providers Care Electric Blanket Packer Name Role Phone Unavailable Primary Care Provider Unavailabl e Allergies Active Allergy Reactions Criticality Noted Date Comments Clarithromycin Medications MULTI-VITAMIN ORAL Take by mouth. Active montelukast (SINGULAIR) 10 mg tablet Take by mouth every evening. Active estradiol (ESTRACE) 0.5 mg tablet Take 0.5 mg by mouth daily. Active Active Problems No known active problems Social History Tobacco Use Types Packs/Day Years Used Date Smoking Tobacco: Never Smokeless Tobacco: Never Tobacco Cessation:Counseling Given: Yes Alcohol Use Standard Drinks/Week Comments Not Asked 0 (1 standard drink = 0.6 oz pur e alcohol) Comments No Sex and Gender Information Value Date Recorded Sex Assigned at Not on file Legal Sex Female 5:10 AM EDT Gender Identity Not on file Sexual Orientation Not on file Last Filed Vital Signs Vital Sign Reading Time Taken Comments Blood Pressure 126/82 10/31/2012 9:07 AM EST Pulse 70 10/31/2012 9:07 AM EST Temperature 36.3 C (97.4 F) 10/31/2012 9:07 AM EST Respiratory Rate - - Oxygen Saturation - - Inhaled Oxygen Concentration - - Weight 80.5 kg (177 lb 6.4 oz) 10/31/2012 9:07 A M EST Height 167.6 cm (5' 6 ) 10/31/2012 9:07 AM EST Body Mass Index 28.63 10/31/2012 9:07 AM EST Plan of Treatment Health Maintenance Due Date Last Done Comments Annual Wellness Exam 1965 Hepatitis C Screening 1980 DTaP/TDaP/Td (1 - Tdap) 1981 Cervical Cancer Screening 1983 Pap Smear 1983 HPV/Pap Cotest 1992 Cologuard 2007 Colon Cancer Screening 2007 Colonoscopy 2007 FIT 2007 Sigmoidoscopy 2007 Virtual Colonography 2007 Pneumococcal Vaccine 50+ (1 of 1 - PCV) 2012 Zoster (1 of 2) 2012 Breast Cancer Screening 03/18/2016 03/18/20 14 (Previously completed) COVID-19 Vaccine (1 - 2024-2 6 season) 2025 Influenza Vaccine (#1) 2025 Hepatitis B Vaccine Aged Out No longe r eligible based on patient's age to complete this topic Meningococcal B Vaccine Aged Out No l onger eligible based on patient's age to complete this topic Insurance [facility]
--- OUTSIDE RECORDS SUMMARY | 2025-06-18 15:05 | XMS_ITS | Encounter Summary ---
Author Organization [employer] ([place], [place], [place], [place]) Address [address] [place] [address] Care Team Providers Care Printed Products Assembler Name Role Phone Raf Denson MD Primary Care Provider Reason for Visit * Reason Comments Medication Refill Encounter Details Date Type Department Care Team (Late st Contact Info) Description 03/14/2023 Refill [facility] [address] [place] [address] [address] [place] [address] Raf Denson MD [address] [place] [address] [address] [place] [address] Depressive disorder Social History Tobacco Use Types Packs/Day Years [...] documented as of this encounter Visit Diagnoses Diagnosis Depressive disorder Depressive disorder, not elsewhere classified documented in this encounter Care Teams Printed Products Assembler Relationship Specialty Start Date End Date Raf Denson MD [address] [facility] [address] [place] [address] PCP - General Internal Medicine 02/05/23 documented as of this encounter
--- OUTSIDE RECORDS SUMMARY | 2025-06-18 15:05 | XMS_ITS | Encounter Summary ---
Author Organization [employer] ([place], [place], [place], [place]) Address [address] [place] [address] Care Team Providers Care Patrol Police Sergeant Name Role Phone Raf Denson MD Primary Care Provider [phone] Reason for Visit * Reason Comments Medication Refill Encounter Details Date Type Department Care Team (Late st Contact Info) Description 01/11/2024 Refill [facility] [address] [facility] [address] [place] [address] Marleny Rico PA-C [address] [place] [address] Social History Tobacco Use Types Packs/Day Years [...] Date Dax rded Speak language other than Syriac at home Not on file 09/13/2023 Want [...] on filedocumented in this encounter Care Teams Patrol Police Sergeant Relationship Specialty Start Date End Date Raf Denson MD [address] [address] PCP - General Internal Medicine 02/05/23 documented as of this encounter
== END 2025-06-18 23:59 | disposition home or self-care (01) ==
LOC: RAD 14:43
PROVIDERS: PCP Physician Assistant; Visit Provider Physician Assistant
DX: J45.909 Unspecified asthma, uncomplicated (principal)
CPT/HCPCS: 71046

== ENCOUNTER 2025-08-11 13:54 | Outpatient (CLI) | payer BC, OTHER, SELFPAY ==
--- OUTSIDE RECORDS SUMMARY | 2025-08-11 13:59 | XMS_ITS | Clinical Summary ---
Author Organization [facility] ([place], [place], [place], [place], [place]) Address [address] [place] [address] Care Team Providers Care Associate Professor Of Radiology Name Role Phone Raf Denson MD Primary Care Provider [phone] Allergies Active Allergy Reactions Criticality Noted Date [...] moteroL (SYMBICORT) 160-4.5 mcg/actuation inhaler SMARTSIG:Via Inhaler 11/02/19 Active cyanocobalamin (VITAMIN B-12) 1,000 mcg/mL injectionIndic ations:B12 deficiency Inject 1 mL (1,000 mcg total) intramuscularly every 30 (thirty) days. 10 mL 1 02/07/20 Active DULoxetine (CYMBALTA) 30 MG capsuleIndicat ions:Depressiv [...] Date Dax rded Speak language other than Georgian at home Not on file 09/13/2023 Want [...] * Lipid panel (02/07/2024 10:55 AM EDT) [facility] [address] Cholesterol, Total 184 100 - 199 mg/dL [facility] Triglycerides 127 0 - 149 mg/dL [facility] HDL Cholesterol 68 >39 mg/dL [facility] VLDL Cholesterol Satinder 22 5 - 40 mg/dL [facility] LDL Calculated 94 0 - 99 mg/dL [facility] Blood 02/07/2024 10:5 5 AM EDT 02/07/2024 Narrative [facility] - 02/08/2024 7:09 AM EDT Performed at: 01 - [facility] [address] [id number] Molding Supervisor: Christopher Martini PhD, Phone: [phone] us Raf Denson MD LAB BLOOD ORDERABLES Final Res ult [facility] from Last 3 Months or Most Recently Relevant to Health Maintenance Insurance BLUE CROSS/BLUE SHIELD Care Teams Associate Professor Of Radiology Relationship Specialty Start Date End Date Raf Denson MD [address] [address] PCP - General Internal Medicine 02/05/23
--- OUTSIDE RECORDS SUMMARY | 2025-08-11 13:59 | XMS_ITS | Clinical Summary ---
Author Organization [facility] Address [address] [place] [address] Care Team Providers Care Streetcar Repairer Name Role Phone Boo French MD Primary Care Provider [phone] Immunizations Immunization Administration Dates Next Due Influenza, [...] of Treatment Not on file Care Teams Streetcar Repairer Relationship Specialty Start Date End Date Boo French MD [address] [place] [id number] PCP - General 01/07/21
--- OUTSIDE RECORDS SUMMARY | 2025-08-11 13:59 | XMS_ITS | Clinical Summary ---
Author Organization [facility] Address [address] [place] [address] Care Team Providers Care Stewardess Supervisor Name Role Phone Boo French MD Primary Care Provider [phone] Family History Medical History Relation Name Comments [...] Most Recently Relevant to Health Maintenance Insurance [facility] BLUE CROSS BLUE SHIELD PPO Advance Directives Documents on File Type Date Recorded Patient Clinical Programmer Expl anation LIVING WILL - SCAN 10/19/2022 6:52 AM POWER OF PROJECT MANAGER RETAIL - SCAN 10/02/2019 8:24 AM POA 09/23/2012 Care Teams Stewardess Supervisor Relationship Specialty Start Date End Date Boo French MD [address] [place] [address] [place] [address] PCP - General 08/23/15
--- OUTSIDE RECORDS SUMMARY | 2025-08-11 13:59 | XMS_ITS | Clinical Summary ---
Author Organization [facility] Address [address] [place] [address] Phone Care Team Providers Care Policy Change Clerk Name Role Phone Unavailable Primary Care Provider [...] patient's age to complete this topic Insurance [facility]
--- OUTSIDE RECORDS SUMMARY | 2025-08-11 13:59 | XMS_ITS | Referral Summary ---
Author Organization [facility] ([place], [place], [place], [place], [place]) Address [address] [place] [address] Care Team Providers Care Information Systems Auditor Name Role Phone Raf Denson MD Primary Care Provider [phone] Allergies Active Allergy Reactions Criticality Noted Date [...] Date Dax rded Speak language other than Ukrainian at home Not on file 09/13/2023 Want [...] - 02/08/2024 7:09 AM EDT Performed at: - [facility] [address] [id number] Human Resources Vice President: Christopher Martini PhD, Phone: [phone] Raf Denson MD LAB BLOOD ORDERABLES Final Res ult [facility] from Last 3 Months or Most Recently Relevant to Health Maintenance Insurance BLUE CROSS[employer]BLUE SHIELD Care Teams Information Systems Auditor Relationship Specialty Start Date End Date Raf Denson MD [address] [address] PCP - General Internal Medicine 02/05/23
[2025-08-11 14:36] LABS: Hematocrit 41.5 % (37.0-47.0); Hemoglobin 13.6 g/dL (12.2-16.2); Immature Granulocytes % 0.2 %; Mean Corpuscular HGB Conc 32.8 g/dL (31.8-35.4); Mean Corpuscular Hemoglobin 29.2 pg (27.0-31.2); Mean Corpuscular Volume 89.2 fl (81-99); Nucleated Red Blood Cells % 0 %; Platelet Count 317 K/mm3 (142-424); Red Blood Count 4.65 M/mm3 (4.20-5.40); Red Cell Distribution Width-SD 42.1 fL; White Blood Count 8.2 K/mm3 (4.8-10.8)
[2025-08-11 15:20] LABS: Alanine Aminotransferase 28 U/L (12-78); Albumin Level 4.9 g/dl (3.5-5.0); Alkaline Phosphatase 55 U/L (38-126); Anion Gap 16.0 mEq/L (5-15); Aspartate Amino Transferase 37 U/L (14-36); Bilirubin,Direct 0.5 mg/dl (0.0-0.4); Bilirubin,Indirect 0.1 mg/dL (0.0-0.9); Bilirubin,Total 0.6 mg/dl (0.2-1.3); Bilirubin,Unconjugated 0.1 mg/dL (0.0-1.1); Blood Urea Nitrogen 22 mg/dl (7-17); Carbon Dioxide 26 mmol/L (22.0-30.0); Chloride 103 mmol/L (98-107); Cholesterol 193 mg/dl (140-200); Creatinine,Serum 1.00 mg/dl (0.52-1.04); Estimated Glomerular Filt Rate 56 ml/min (>60); GFR (African American) 68 ML/MIN (>60); HDL Cholesterol 84 mg/dl (40-60); Magnesium 2.0 mg/dl (1.6-2.3); Potassium 5.0 mmoL/L (3.5-5.1); Sodium 140 mmol/L (136-145); Total Protein,Serum 7.7 g/dl (6.3-8.2); Triglycerides 229 mg/dl (30-150)
[2025-08-11 15:34] LABS: Free T4 (Free Thyroxine) 0.81 ng/dl (0.78-2.19)
[2025-08-11 15:41] LABS: Calcium 10.2 mg/dl (8.4-10.2); Glucose 89 mg/dl (74-100)
[2025-08-11 16:55] LABS: Thyroid Stimulating Hormone 2.02 uIU/mL (0.465-4.68)
== END 2025-08-11 23:59 | disposition home or self-care (01) ==
LOC: LAB 13:55
PROVIDERS: PCP Physician Assistant; Visit Provider Internal Medicine
DX: I11.0 Hypertensive heart disease with heart failure (principal); I50.30 Unspecified diastolic (congestive) heart failure; E78.2 Mixed hyperlipidemia
CPT/HCPCS: 36415; 80048; 80061; 80076; 83735; 84439; 84443; 85025